=== PATIENT | female | born 1970 | race Caucasian/White ===

== ENCOUNTER 2020-06-05 08:23 | Day surgery (SDC) | payer OTHER ==
[2020-06-02 12:23] VITALS: BMI 25.2
[2020-06-05] MEDS ORDERED: KETAMINE HCL 500 MG/10 ML VIAL ONE (10:25)
[2020-06-05] MEDS ORDERED: ONDANSETRON 4 MG/2 ML VIAL ONE (10:30)
[2020-06-05] MEDS ORDERED: PROPOFOL 20 ML ONE (10:30)
[2020-06-05] MEDS ORDERED: LACTATED RINGERS SOLUTION 1,000 ML IV SCH (11:45)
[2020-06-05] MEDS ORDERED: ACETAMINOPHEN 325 MG TABLET (FP) PO PRN (11:45)
[2020-06-05] MEDS ORDERED: KETOROLAC TROMETHAMINE 30 MG/1 ML VIAL IVPUSH ONE (11:46)
[2020-06-05 11:57] VITALS: TEMP 98.2
[2020-06-05 12:42] VITALS: BP 116/72; PULSE 62
== END 2020-06-05 12:45 | disposition home or self-care (01) ==
LOC: FECT 08:23
PROVIDERS: ATTEND Psychiatry & Neurology Psychiatry
PROC: GZB4ZZZ Other Electroconvulsive Therapy (ICD-10-PCS; principal; 2020-06-05 10:30)
DX: F32.9 Major depressive disorder, single episode, unspecified (principal)
CPT/HCPCS: 90870; 94760; C9803; U0003

== ENCOUNTER 2020-06-08 06:21 | Day surgery (SDC) | payer OTHER ==
[2020-06-02 12:55] VITALS: BMI 25.2
[2020-06-08] MEDS ORDERED: KETAMINE HCL 500 MG/10 ML VIAL ONE (08:21)
[2020-06-08 09:35] VITALS: TEMP 98.7
[2020-06-08 10:20] VITALS: BP 122/71; PULSE 70
== END 2020-06-08 10:10 | disposition home or self-care (01) ==
LOC: FECT 06:21
PROVIDERS: ATTEND Psychiatry & Neurology Psychiatry
PROC: GZB4ZZZ Other Electroconvulsive Therapy (ICD-10-PCS; principal; 2020-06-08 08:30)
DX: F32.9 Major depressive disorder, single episode, unspecified (principal)
CPT/HCPCS: 90870; 94760; C9803; U0003

== ENCOUNTER 2021-09-04 08:07 | Day surgery (SDC) | payer OTHER ==
[2021-09-04 09:00] VITALS: BMI 27.8
[2021-09-04] MEDS ORDERED: KETAMINE HCL 200 MG/20 ML VIAL ONE (09:46)
[2021-09-04 10:36] VITALS: TEMP 98
[2021-09-04 11:20] VITALS: BP 126/72; PULSE 62
== END 2021-09-04 11:20 | disposition home or self-care (01) ==
LOC: FECT 08:07
PROVIDERS: ATTEND Psychiatry & Neurology Psychiatry
PROC: GZB4ZZZ Other Electroconvulsive Therapy (ICD-10-PCS; principal; 2021-09-04 09:50)
DX: F33.2 Major depressive disorder, recurrent severe without psychotic features (principal)
CPT/HCPCS: 90870; 93005; 94760; C9803-CS; U0003; U0005

== ENCOUNTER 2021-09-06 07:22 | Day surgery (SDC) | payer OTHER ==
[2021-09-05 12:38] VITALS: BMI 27.8
[2021-09-06] MEDS ORDERED: KETAMINE HCL 500 MG/10 ML VIAL ONE (08:40)
[2021-09-06 09:20] VITALS: TEMP 97.1
[2021-09-06 10:17] VITALS: BP 131/76; PULSE 68
[2021-09-13] MEDS ORDERED: KETAMINE HCL 500 MG/10 ML VIAL ONE (07:50)
[2021-09-14] MEDS ORDERED: KETAMINE HCL 500 MG/10 ML VIAL ONE (07:13)
== END 2021-09-06 10:05 | disposition home or self-care (01) ==
LOC: FECT 07:22
PROVIDERS: ATTEND Psychiatry & Neurology Psychiatry
PROC: GZB4ZZZ Other Electroconvulsive Therapy (ICD-10-PCS; principal; 2021-09-06 08:55)
DX: F31.9 Bipolar disorder, unspecified (principal)
CPT/HCPCS: 90870; 94760

== ENCOUNTER 2021-09-07 06:00 | Day surgery (SDC) | payer OTHER ==
[2021-09-05 15:06] VITALS: BMI 27.8
[2021-09-07] MEDS ORDERED: KETAMINE HCL 500 MG/10 ML VIAL ONE (07:21)
[2021-09-07] MEDS ORDERED: ONDANSETRON 4 MG/2 ML VIAL ONE (07:26)
[2021-09-07] MEDS ORDERED: PROPOFOL 20 ML ONE (07:26)
[2021-09-07] MEDS ORDERED: KETOROLAC TROMETHAMINE 30 MG/1 ML VIAL ONE (07:26)
[2021-09-07] MEDS ORDERED: LIDOCAINE HCL/PF 2% SDV 5ML VIAL ONE (07:26)
[2021-09-07] MEDS ORDERED: SUCCINYLCHOLINE CHLORIDE 200 MG/10 ML SYRINGE ONE (07:26)
[2021-09-07 08:40] VITALS: TEMP 97.7
[2021-09-07 09:04] VITALS: BP 125/75; PULSE 69
[2021-09-07] MEDS ORDERED: ACETAMINOPHEN 325 MG TABLET (FP) PO PRN (09:57)
[2021-09-07] MEDS ORDERED: ONDANSETRON 4 MG/2 ML VIAL IVPUSH PRN (09:57)
[2021-09-07] MEDS ORDERED: LACTATED RINGERS SOLUTION 1,000 ML IV SCH (10:00)
== END 2021-09-07 09:00 | disposition home or self-care (01) ==
LOC: FECT 06:00
PROVIDERS: ATTEND Psychiatry & Neurology Psychiatry
PROC: GZB4ZZZ Other Electroconvulsive Therapy (ICD-10-PCS; principal; 2021-09-07 07:31)
DX: F31.62 Bipolar disorder, current episode mixed, moderate (principal)
CPT/HCPCS: 90870; 94760; C9803-CS; U0003; U0005

== ENCOUNTER 2021-09-11 07:06 | Day surgery (SDC) | payer OTHER ==
[2021-09-07 14:46] VITALS: BMI 27.8
[2021-09-11] MEDS ORDERED: KETAMINE HCL 500 MG/10 ML VIAL ONE (08:42)
[2021-09-11] MEDS ORDERED: LIDOCAINE HCL/PF 2% SDV 5ML VIAL ONE (08:47)
[2021-09-11 09:08] VITALS: TEMP 98.6
[2021-09-11 10:08] VITALS: BP 122/80; PULSE 62
== END 2021-09-11 10:10 | disposition home or self-care (01) ==
LOC: FECT 07:06
PROVIDERS: ATTEND Psychiatry & Neurology Psychiatry
PROC: GZB4ZZZ Other Electroconvulsive Therapy (ICD-10-PCS; principal; 2021-09-11 08:55)
DX: F31.9 Bipolar disorder, unspecified (principal)
CPT/HCPCS: 90870; 94760; C9803-CS; U0003; U0005

== ENCOUNTER 2021-09-13 06:10 | Day surgery (SDC) | payer OTHER ==
[2021-09-13 06:48] VITALS: BMI 29.4
[2021-09-13 08:49] VITALS: TEMP 97.8
[2021-09-13 09:12] VITALS: BP 127/71; PULSE 78
== END 2021-09-13 09:15 | disposition home or self-care (01) ==
LOC: FECT 06:10
PROVIDERS: ATTEND Psychiatry & Neurology Psychiatry
PROC: GZB4ZZZ Other Electroconvulsive Therapy (ICD-10-PCS; principal; 2021-09-13 08:01)
DX: F31.9 Bipolar disorder, unspecified (principal)
CPT/HCPCS: 90870; 94760

== ENCOUNTER 2021-09-14 06:02 | Day surgery (SDC) | payer OTHER ==
[2021-09-11 18:17] VITALS: BMI 27.8
[2021-09-14] MEDS ORDERED: ACETAMINOPHEN 1000 MG/100 ML BAG IVPB ONE (07:46)
[2021-09-14] MEDS ORDERED: LACTATED RINGERS SOLUTION 1,000 ML IV SCH (08:00)
[2021-09-14 08:27] VITALS: TEMP 97.8
[2021-09-14 09:05] VITALS: BP 122/74; PULSE 68
== END 2021-09-14 09:07 | disposition home or self-care (01) ==
LOC: FECT 06:02
PROVIDERS: ATTEND Psychiatry & Neurology Psychiatry
PROC: GZB4ZZZ Other Electroconvulsive Therapy (ICD-10-PCS; principal; 2021-09-14 07:39)
DX: F31.9 Bipolar disorder, unspecified (principal)
CPT/HCPCS: 90870; 94760; C9803-CS; U0003; U0005

== ENCOUNTER 2021-09-25 06:05 | Day surgery (SDC) | payer OTHER ==
[2021-09-18 12:05] VITALS: BMI 27.8
[2021-09-25] MEDS ORDERED: EPI-SHUGARCAINE (EPINEPHRINE 0.025% & LIDOCAINE-PF 0.75%) 4ML ONE (07:18)
[2021-09-25] MEDS ORDERED: TETRACAINE 0.5% OPHTH SOLN 2 ML BOTTLE ONE (07:18)
[2021-09-25] MEDS ORDERED: BACITRACIN/POLYMYXIN OPH OINT 3.5 GM TUBE ONE (07:18)
[2021-09-25] MEDS ORDERED: BETAXOLOL HCL 0.25% OPHTHALMIC 10 ML DROPSBTL ONE (07:18)
[2021-09-25] MEDS ORDERED: EPINEPHrine/PF 1 MG/1 ML (1:1,000) AMPULE ONE ×2 (07:18→07:19)
[2021-09-25] MEDS ORDERED: NEO/POLYMYX B SULF/DEXAMETH OPHTHALMIC 5ML BOTTLE ONE (07:19)
[2021-09-25] MEDS ORDERED: POVIDONE-IODINE 5% OPHTHALMIC PREP 30 ML SOLUTION ONE (07:19)
[2021-09-25] MEDS ORDERED: KETAMINE HCL 500 MG/10 ML VIAL ONE (08:02)
[2021-09-25] MEDS ORDERED: LIDOCAINE HCL/PF 2% SDV 5ML VIAL ONE (08:08)
[2021-09-25 08:28] VITALS: TEMP 98
[2021-09-25 09:19] VITALS: BP 122/75; PULSE 74
[2021-09-25] MEDS ORDERED: ACETAMINOPHEN 325 MG TABLET (FP) PO PRN (09:39)
[2021-09-25] MEDS ORDERED: PROMETHAZINE HCL 25 MG/1 ML VIAL IVPUSH PRN (09:39)
[2021-09-25] MEDS ORDERED: LACTATED RINGERS SOLUTION 1,000 ML IV SCH (09:45)
== END 2021-09-25 09:20 | disposition home or self-care (01) ==
LOC: FECT 06:05
PROVIDERS: ATTEND Psychiatry & Neurology Psychiatry
PROC: GZB4ZZZ Other Electroconvulsive Therapy (ICD-10-PCS; principal; 2021-09-25 08:09)
DX: F31.9 Bipolar disorder, unspecified (principal)
CPT/HCPCS: 90870; 94760

== ENCOUNTER 2021-09-27 06:15 | Day surgery (SDC) | payer OTHER ==
[2021-09-19 16:16] VITALS: BMI 27.8
[2021-09-27] MEDS ORDERED: KETAMINE HCL 500 MG/10 ML VIAL ONE (07:58)
[2021-09-27 08:23] VITALS: TEMP 97.3
[2021-09-27 09:26] VITALS: BP 129/69; PULSE 77
== END 2021-09-27 09:10 | disposition home or self-care (01) ==
LOC: FECT 06:15
PROVIDERS: ATTEND Psychiatry & Neurology Psychiatry
PROC: GZB4ZZZ Other Electroconvulsive Therapy (ICD-10-PCS; principal; 2021-09-27 08:04)
DX: F31.9 Bipolar disorder, unspecified (principal)
CPT/HCPCS: 90870; 94760

== ENCOUNTER 2021-09-28 05:53 | Day surgery (SDC) | payer OTHER ==
[2021-09-19 16:20] VITALS: BMI 27.8
[2021-09-28] MEDS ORDERED: KETAMINE HCL 500 MG/10 ML VIAL ONE (07:33)
[2021-09-28] MEDS ORDERED: PROPOFOL 20 ML ONE (07:34)
[2021-09-28] MEDS ORDERED: KETOROLAC TROMETHAMINE 30 MG/1 ML VIAL ONE (07:34)
[2021-09-28] MEDS ORDERED: LIDOCAINE HCL 2% 100 MG/5 ML DISP.SYRIN ONE (07:34)
[2021-09-28] MEDS ORDERED: ONDANSETRON 4 MG/2 ML VIAL ONE (07:34)
[2021-09-28 08:31] VITALS: BP 127/75; PULSE 76; TEMP 97
== END 2021-09-28 08:43 | disposition home or self-care (01) ==
LOC: FECT 05:53
PROVIDERS: ATTEND Psychiatry & Neurology Psychiatry
PROC: GZB4ZZZ Other Electroconvulsive Therapy (ICD-10-PCS; principal; 2021-09-28 07:43)
DX: F31.9 Bipolar disorder, unspecified (principal)
CPT/HCPCS: 90870; 94760

== ENCOUNTER 2021-10-02 05:52 | Day surgery (SDC) | payer OTHER ==
[2021-09-19 16:23] VITALS: BMI 27.8
[2021-10-02] MEDS ORDERED: KETAMINE HCL 500 MG/10 ML VIAL ONE (07:11)
[2021-10-02 08:22] VITALS: TEMP 97.8
[2021-10-02 08:35] VITALS: BP 125/77; PULSE 66
== END 2021-10-02 08:45 | disposition home or self-care (01) ==
LOC: FECT 05:52
PROVIDERS: ATTEND Psychiatry & Neurology Psychiatry
PROC: GZB4ZZZ Other Electroconvulsive Therapy (ICD-10-PCS; principal; 2021-10-02 07:31)
DX: F31.9 Bipolar disorder, unspecified (principal)
CPT/HCPCS: 90870; 94760

== ENCOUNTER 2021-10-04 06:34 | Day surgery (SDC) | payer OTHER ==
[2021-09-25 12:30] VITALS: BMI 27.8
[2021-10-04] MEDS ORDERED: PROPOFOL 20 ML ONE (08:18)
[2021-10-04] MEDS ORDERED: KETOROLAC TROMETHAMINE 30 MG/1 ML VIAL ONE (08:18)
[2021-10-04] MEDS ORDERED: ONDANSETRON 4 MG/2 ML VIAL ONE (08:18)
[2021-10-04] MEDS ORDERED: KETAMINE HCL 500 MG/10 ML VIAL ONE (08:18)
[2021-10-04] MEDS ORDERED: SUCCINYLCHOLINE CHLORIDE 200 MG/10 ML SYRINGE ONE (08:18)
[2021-10-04] MEDS ORDERED: ACETAMINOPHEN INJECTION 100 ML IVPB ONE (08:46)
[2021-10-04] MEDS ORDERED: ACETAMINOPHEN 1000 MG/100 ML BAG IVPB ONE (09:18)
[2021-10-04 09:25] VITALS: TEMP 97.4
[2021-10-04 09:41] VITALS: BP 100/60; PULSE 66
== END 2021-10-04 09:45 | disposition home or self-care (01) ==
LOC: FECT 06:34
PROVIDERS: ATTEND Psychiatry & Neurology Psychiatry
PROC: GZB4ZZZ Other Electroconvulsive Therapy (ICD-10-PCS; principal; 2021-10-04 08:27)
DX: F31.9 Bipolar disorder, unspecified (principal)
CPT/HCPCS: 90870; 94760

== ENCOUNTER 2021-10-05 05:58 | Day surgery (SDC) | payer OTHER ==
[2021-09-13 15:55] VITALS: BMI 29.4
[2021-10-05] MEDS ORDERED: KETAMINE HCL 500 MG/10 ML VIAL ONE (07:26)
[2021-10-05 09:13] VITALS: BP 115/74; PULSE 71; TEMP 97.8
== END 2021-10-05 09:10 | disposition home or self-care (01) ==
LOC: FECT 05:58
PROVIDERS: ATTEND Psychiatry & Neurology Psychiatry
PROC: GZB4ZZZ Other Electroconvulsive Therapy (ICD-10-PCS; principal; 2021-10-05 07:45)
DX: F31.62 Bipolar disorder, current episode mixed, moderate (principal)
CPT/HCPCS: 90870; 94760

== ENCOUNTER 2021-10-09 05:52 | Day surgery (SDC) | payer OTHER ==
[2021-10-05 07:43] VITALS: BMI 29.4
[2021-10-09] MEDS ORDERED: KETAMINE HCL 500 MG/10 ML VIAL ONE (07:29)
[2021-10-09 08:26] VITALS: TEMP 98
[2021-10-09 08:57] VITALS: BP 121/67; PULSE 62
== END 2021-10-09 09:00 | disposition home or self-care (01) ==
LOC: FECT 05:52
PROVIDERS: ATTEND Psychiatry & Neurology Psychiatry
PROC: GZB4ZZZ Other Electroconvulsive Therapy (ICD-10-PCS; principal; 2021-10-09 07:43)
DX: F31.9 Bipolar disorder, unspecified (principal)
CPT/HCPCS: 90870; 94760

== ENCOUNTER 2021-10-11 08:17 | Day surgery (SDC) | payer OTHER ==
[2021-10-05 08:11] VITALS: BMI 29.4
[2021-10-11] MEDS ORDERED: KETAMINE HCL 500 MG/10 ML VIAL ONE (10:33)
[2021-10-11] MEDS ORDERED: SUCCINYLCHOLINE CHLORIDE 200 MG/10 ML SYRINGE ONE (10:33)
[2021-10-11 11:36] VITALS: TEMP 97
[2021-10-11 11:50] VITALS: BP 113/62; PULSE 65
== END 2021-10-11 11:58 | disposition home or self-care (01) ==
LOC: FECT 08:17
PROVIDERS: ATTEND Psychiatry & Neurology Psychiatry
PROC: GZB4ZZZ Other Electroconvulsive Therapy (ICD-10-PCS; principal; 2021-10-11 10:41)
DX: F31.9 Bipolar disorder, unspecified (principal)
CPT/HCPCS: 90870; 94760

== ENCOUNTER 2021-10-12 05:52 | Day surgery (SDC) | payer OTHER ==
[2021-10-05 08:13] VITALS: BMI 29.4
[2021-10-12] MEDS ORDERED: KETAMINE HCL 500 MG/10 ML VIAL ONE (07:17)
[2021-10-12 08:25] VITALS: TEMP 97.3
[2021-10-12 08:41] VITALS: BP 121/71; PULSE 69
== END 2021-10-12 08:45 | disposition home or self-care (01) ==
LOC: FECT 05:52
PROVIDERS: ATTEND Psychiatry & Neurology Psychiatry
PROC: GZB4ZZZ Other Electroconvulsive Therapy (ICD-10-PCS; principal; 2021-10-12 07:31)
DX: F31.9 Bipolar disorder, unspecified (principal)
CPT/HCPCS: 90870; 94760

== ENCOUNTER 2021-10-16 06:05 | Day surgery (SDC) | payer OTHER ==
[2021-10-12 14:02] VITALS: BMI 29.4
[2021-10-16] MEDS ORDERED: KETOROLAC TROMETHAMINE 30 MG/1 ML VIAL ONE (07:29)
[2021-10-16] MEDS ORDERED: KETAMINE HCL 500 MG/10 ML VIAL ONE (07:29)
[2021-10-16] MEDS ORDERED: PROPOFOL 20 ML ONE (07:35)
[2021-10-16] MEDS ORDERED: SUCCINYLCHOLINE CHLORIDE 200 MG/10 ML SYRINGE ONE (07:35)
[2021-10-16] MEDS ORDERED: ONDANSETRON 4 MG/2 ML VIAL ONE (07:35)
[2021-10-16 08:11] VITALS: TEMP 97.8
[2021-10-16 09:11] VITALS: BP 103/69; PULSE 65
[2021-10-16] MEDS ORDERED: ONDANSETRON 4 MG/2 ML VIAL IVPUSH PRN (10:30)
[2021-10-16] MEDS ORDERED: oxyCODONE HCL 5 MG TABLET PO PRN (10:30)
== END 2021-10-16 09:15 | disposition home or self-care (01) ==
LOC: FECT 06:05
PROVIDERS: ATTEND Psychiatry & Neurology Psychiatry
PROC: GZB4ZZZ Other Electroconvulsive Therapy (ICD-10-PCS; principal; 2021-10-16 07:43)
DX: F31.9 Bipolar disorder, unspecified (principal)
CPT/HCPCS: 90870; 94760

== ENCOUNTER 2021-10-18 06:35 | Day surgery (SDC) | payer OTHER ==
[2021-10-12 14:21] VITALS: BMI 29.4
[2021-10-18] MEDS ORDERED: KETAMINE HCL 500 MG/10 ML VIAL ONE (08:12)
[2021-10-18] MEDS ORDERED: ONDANSETRON 4 MG/2 ML VIAL ONE (08:16)
[2021-10-18] MEDS ORDERED: KETOROLAC TROMETHAMINE 30 MG/1 ML VIAL ONE (08:16)
[2021-10-18] MEDS ORDERED: SUCCINYLCHOLINE CHLORIDE 200 MG/10 ML SYRINGE ONE (08:17)
[2021-10-18] MEDS ORDERED: PROPOFOL 20 ML ONE (08:17)
[2021-10-18] MEDS ORDERED: ONDANSETRON 4 MG/2 ML VIAL IVPUSH PRN (08:33)
[2021-10-18] MEDS ORDERED: MIDAZOLAM HCL 2 MG/2 ML SINGLE DOSE VIAL IVPUSH PRN (08:33)
[2021-10-18 08:41] VITALS: TEMP 97.7
[2021-10-18] MEDS ORDERED: LACTATED RINGERS SOLUTION 1,000 ML IV SCH (08:45)
[2021-10-18 09:51] VITALS: BP 106/64; PULSE 60
== END 2021-10-18 09:40 | disposition home or self-care (01) ==
LOC: FECT 06:35
PROVIDERS: ATTEND Psychiatry & Neurology Psychiatry
PROC: GZB4ZZZ Other Electroconvulsive Therapy (ICD-10-PCS; principal; 2021-10-18 08:19)
DX: F31.9 Bipolar disorder, unspecified (principal)
CPT/HCPCS: 90870; 94760

== ENCOUNTER 2021-10-23 06:01 | Day surgery (SDC) | payer OTHER ==
[2021-10-16 15:24] VITALS: BMI 29.4
[2021-10-23] MEDS ORDERED: KETOROLAC TROMETHAMINE 30 MG/1 ML VIAL ONE (06:49)
[2021-10-23] MEDS ORDERED: KETAMINE HCL 500 MG/10 ML VIAL ONE (06:49)
[2021-10-23] MEDS ORDERED: ONDANSETRON 4 MG/2 ML VIAL ONE (07:02)
[2021-10-23] MEDS ORDERED: PROPOFOL 20 ML ONE (07:02)
[2021-10-23] MEDS ORDERED: LIDOCAINE HCL/PF 2% SDV 5ML VIAL ONE (07:02)
[2021-10-23] MEDS ORDERED: SUCCINYLCHOLINE CHLORIDE 200 MG/10 ML SYRINGE ONE (07:03)
[2021-10-23 08:17] VITALS: BP 121/61; PULSE 61; TEMP 98
[2021-10-23] MEDS ORDERED: ONDANSETRON 4 MG/2 ML VIAL IVPUSH PRN (10:00)
== END 2021-10-23 08:30 | disposition home or self-care (01) ==
LOC: FECT 06:01
PROVIDERS: ATTEND Psychiatry & Neurology Psychiatry
PROC: GZB4ZZZ Other Electroconvulsive Therapy (ICD-10-PCS; principal; 2021-10-23 07:05)
DX: F31.9 Bipolar disorder, unspecified (principal)
CPT/HCPCS: 90870; 94760

== ENCOUNTER 2021-10-26 06:08 | Day surgery (SDC) | payer OTHER ==
[2021-10-23 13:39] VITALS: BMI 29.4
[2021-10-26] MEDS ORDERED: KETAMINE HCL 500 MG/10 ML VIAL ONE (07:14)
[2021-10-26 10:16] VITALS: BP 99/54; PULSE 61; TEMP 98
== END 2021-10-26 08:40 | disposition home or self-care (01) ==
LOC: FECT 06:08
PROVIDERS: ATTEND Psychiatry & Neurology Psychiatry
PROC: GZB4ZZZ Other Electroconvulsive Therapy (ICD-10-PCS; principal; 2021-10-26 07:28)
DX: F31.62 Bipolar disorder, current episode mixed, moderate (principal)
CPT/HCPCS: 90870; 94760

== ENCOUNTER 2021-10-30 06:02 | Day surgery (SDC) | payer OTHER ==
[2021-10-30 06:50] VITALS: BMI 29.4
[2021-10-30] MEDS ORDERED: KETOROLAC TROMETHAMINE 30 MG/1 ML VIAL ONE (07:31)
[2021-10-30] MEDS ORDERED: KETAMINE HCL 500 MG/10 ML VIAL ONE (07:31)
[2021-10-30] MEDS ORDERED: ONDANSETRON 4 MG/2 ML VIAL ONE (07:33)
[2021-10-30] MEDS ORDERED: SUCCINYLCHOLINE CHLORIDE 200 MG/10 ML SYRINGE ONE (07:33)
[2021-10-30] MEDS ORDERED: PROPOFOL 20 ML ONE (07:33)
[2021-10-30 08:12] VITALS: RESP 16
[2021-10-30 09:01] VITALS: TEMP 97.3
[2021-10-30 11:17] VITALS: BP 92/58; PULSE 63
== END 2021-10-30 09:25 | disposition home or self-care (01) ==
LOC: FECT 06:02
PROVIDERS: ATTEND Psychiatry & Neurology Psychiatry
PROC: GZB4ZZZ Other Electroconvulsive Therapy (ICD-10-PCS; principal; 2021-10-30 07:47)
DX: F31.9 Bipolar disorder, unspecified (principal)
CPT/HCPCS: 90870; 94760

== ENCOUNTER 2021-11-02 06:01 | Day surgery (SDC) | payer OTHER ==
[2021-10-31 15:06] VITALS: BMI 29.4
[2021-11-02] MEDS ORDERED: KETAMINE HCL 500 MG/10 ML VIAL ONE (07:26)
[2021-11-02] MEDS ORDERED: SUCCINYLCHOLINE CHLORIDE 200 MG/10 ML SYRINGE ONE (07:32)
[2021-11-02] MEDS ORDERED: ACETAMINOPHEN 325 MG TABLET (FP) ONE (08:30)
[2021-11-02 08:33] VITALS: RESP 18; TEMP 97.4
[2021-11-02] MEDS ORDERED: ACETAMINOPHEN 325 MG TABLET (FP) PO ONE ×2 (08:35→08:52)
[2021-11-02 09:11] VITALS: BP 111/61; PULSE 63
== END 2021-11-02 09:20 | disposition home or self-care (01) ==
LOC: FECT 06:01
PROVIDERS: ATTEND Psychiatry & Neurology Psychiatry
PROC: GZB4ZZZ Other Electroconvulsive Therapy (ICD-10-PCS; principal; 2021-11-02 07:37)
DX: F31.9 Bipolar disorder, unspecified (principal)
CPT/HCPCS: 90870; 94760

== ENCOUNTER 2021-11-06 06:04 | Day surgery (SDC) | payer OTHER ==
[2021-11-01 12:01] VITALS: BMI 29.4
[2021-11-06] MEDS ORDERED: KETOROLAC TROMETHAMINE 30 MG/1 ML VIAL ONE (07:22)
[2021-11-06] MEDS ORDERED: KETAMINE HCL 500 MG/10 ML VIAL ONE (07:22)
[2021-11-06] MEDS ORDERED: PROPOFOL 20 ML ONE (07:28)
[2021-11-06] MEDS ORDERED: LIDOCAINE HCL/PF 2% SDV 5ML VIAL ONE (07:28)
[2021-11-06] MEDS ORDERED: ONDANSETRON 4 MG/2 ML VIAL ONE (07:28)
[2021-11-06] MEDS ORDERED: SUCCINYLCHOLINE CHLORIDE 200 MG/10 ML SYRINGE ONE (07:28)
[2021-11-06 09:11] VITALS: RESP 18; TEMP 97.9
[2021-11-06 09:12] VITALS: BP 101/60; PULSE 64
== END 2021-11-06 09:00 | disposition home or self-care (01) ==
LOC: FECT 06:04
PROVIDERS: ATTEND Psychiatry & Neurology Psychiatry
PROC: GZB4ZZZ Other Electroconvulsive Therapy (ICD-10-PCS; principal; 2021-11-06 07:40)
DX: F31.62 Bipolar disorder, current episode mixed, moderate (principal)
CPT/HCPCS: 90870; 94760

== ENCOUNTER 2021-11-09 06:06 | Day surgery (SDC) | payer OTHER ==
[2021-11-05 08:54] VITALS: BMI 29.4
[2021-11-09] MEDS ORDERED: KETAMINE HCL 500 MG/10 ML VIAL ONE (07:27)
[2021-11-09] MEDS ORDERED: SUCCINYLCHOLINE CHLORIDE 200 MG/10 ML SYRINGE ONE (07:40)
[2021-11-09 08:53] VITALS: BP 114/65; PULSE 60; RESP 17; TEMP 97.8
== END 2021-11-09 09:15 | disposition home or self-care (01) ==
LOC: FECT 06:06
PROVIDERS: ATTEND Psychiatry & Neurology Psychiatry
PROC: GZB4ZZZ Other Electroconvulsive Therapy (ICD-10-PCS; principal; 2021-11-09 07:43)
DX: F31.9 Bipolar disorder, unspecified (principal)
CPT/HCPCS: 90870; 94760

== ENCOUNTER 2021-11-13 06:14 | Day surgery (SDC) | payer OTHER ==
[2021-11-05 09:07] VITALS: BMI 29.4
[2021-11-13] MEDS ORDERED: KETAMINE HCL 500 MG/10 ML VIAL ONE (07:32)
[2021-11-13 08:02] VITALS: TEMP 98.2
[2021-11-13 09:03] VITALS: RESP 18
[2021-11-13 09:06] VITALS: BP 113/66; PULSE 61
== END 2021-11-13 09:10 | disposition home or self-care (01) ==
LOC: FECT 06:14
PROVIDERS: ATTEND Psychiatry & Neurology Psychiatry
PROC: GZB4ZZZ Other Electroconvulsive Therapy (ICD-10-PCS; principal; 2021-11-13 07:44)
DX: F31.9 Bipolar disorder, unspecified (principal)
CPT/HCPCS: 90870; 94760

== ENCOUNTER 2021-11-16 06:06 | Day surgery (SDC) | payer OTHER ==
[2021-11-12 14:43] VITALS: BMI 29.4
[2021-11-16] MEDS ORDERED: KETAMINE HCL 500 MG/10 ML VIAL ONE (07:23)
[2021-11-16 08:15] VITALS: TEMP 98.2
[2021-11-16 09:06] VITALS: RESP 18
[2021-11-16 09:08] VITALS: BP 110/75; PULSE 61
== END 2021-11-16 09:10 | disposition home or self-care (01) ==
LOC: FECT 06:06
PROVIDERS: ATTEND Psychiatry & Neurology Psychiatry
PROC: GZB4ZZZ Other Electroconvulsive Therapy (ICD-10-PCS; principal; 2021-11-16 07:33)
DX: F31.9 Bipolar disorder, unspecified (principal)
CPT/HCPCS: 90870; 94760

== ENCOUNTER 2021-11-30 06:12 | Day surgery (SDC) | payer OTHER ==
[2021-11-13 12:48] VITALS: BMI 29.4
[2021-11-30] MEDS ORDERED: KETAMINE HCL 500 MG/10 ML VIAL ONE (07:59)
[2021-11-30 08:55] VITALS: PULSE 53; RESP 18; TEMP 97.9
[2021-11-30 09:22] VITALS: BP 105/65
[2021-11-30] MEDS ORDERED: ACETAMINOPHEN 325 MG TABLET (FP) PO PRN (09:31)
[2021-11-30] MEDS ORDERED: PROMETHAZINE HCL 25 MG/1 ML VIAL IVPUSH PRN (09:31)
[2021-11-30] MEDS ORDERED: LACTATED RINGERS SOLUTION 1,000 ML IV SCH (09:45)
== END 2021-11-30 09:26 | disposition home or self-care (01) ==
LOC: FECT 06:12
PROVIDERS: ATTEND Psychiatry & Neurology Psychiatry
PROC: GZB4ZZZ Other Electroconvulsive Therapy (ICD-10-PCS; principal; 2021-11-30 08:09)
DX: F31.9 Bipolar disorder, unspecified (principal)
CPT/HCPCS: 90870; 94760

== ENCOUNTER 2021-12-07 06:03 | Day surgery (SDC) | payer OTHER ==
[2021-12-07 07:14] VITALS: BMI 29.5
[2021-12-07] MEDS ORDERED: KETAMINE HCL 500 MG/10 ML VIAL ONE (08:03)
[2021-12-07] MEDS ORDERED: KETOROLAC TROMETHAMINE 30 MG/1 ML VIAL ONE (08:03)
[2021-12-07] MEDS ORDERED: ONDANSETRON 4 MG/2 ML VIAL ONE (08:07)
[2021-12-07] MEDS ORDERED: SUCCINYLCHOLINE CHLORIDE 200 MG/10 ML SYRINGE ONE (08:07)
[2021-12-07] MEDS ORDERED: PROPOFOL 20 ML ONE (08:10)
[2021-12-07 09:53] VITALS: RESP 18; TEMP 97.9
[2021-12-07] MEDS ORDERED: ONDANSETRON 4 MG/2 ML VIAL IVPUSH PRN (09:53)
[2021-12-07 10:03] VITALS: BP 107/66; PULSE 67
== END 2021-12-07 09:50 | disposition home or self-care (01) ==
LOC: FECT 06:03
PROVIDERS: ATTEND Psychiatry & Neurology Psychiatry
PROC: GZB4ZZZ Other Electroconvulsive Therapy (ICD-10-PCS; principal; 2021-12-07 08:14)
DX: F31.9 Bipolar disorder, unspecified (principal)
CPT/HCPCS: 90870; 94760

== ENCOUNTER 2021-12-14 06:06 | Day surgery (SDC) | payer OTHER ==
[2021-12-11 17:23] VITALS: BMI 29.5
[2021-12-14] MEDS ORDERED: LACTATED RINGERS SOLUTION 1,000 ML IV SCH (08:00)
[2021-12-14] MEDS ORDERED: ACETAMINOPHEN 325 MG TABLET (FP) PO PRN (08:00)
[2021-12-14] MEDS ORDERED: ONDANSETRON 4 MG/2 ML VIAL IVPUSH PRN (08:00)
[2021-12-14] MEDS ORDERED: KETAMINE HCL 500 MG/10 ML VIAL ONE (08:06)
[2021-12-14] MEDS ORDERED: KETOROLAC TROMETHAMINE 30 MG/1 ML VIAL ONE (08:10)
[2021-12-14] MEDS ORDERED: PROPOFOL 20 ML ONE (08:19)
[2021-12-14 09:10] VITALS: RESP 18; TEMP 97.6
[2021-12-14 09:40] VITALS: BP 131/71; PULSE 77
== END 2021-12-14 09:30 | disposition home or self-care (01) ==
LOC: FECT 06:06
PROVIDERS: ATTEND Psychiatry & Neurology Psychiatry
PROC: GZB4ZZZ Other Electroconvulsive Therapy (ICD-10-PCS; principal; 2021-12-14 08:17)
DX: F31.62 Bipolar disorder, current episode mixed, moderate (principal)
CPT/HCPCS: 90870; 94760

== ENCOUNTER 2021-12-21 06:10 | Day surgery (SDC) | payer OTHER ==
[2021-12-18 18:36] VITALS: BMI 29.5
[2021-12-21] MEDS ORDERED: KETAMINE HCL 500 MG/10 ML VIAL ONE (07:21)
[2021-12-21 08:02] VITALS: TEMP 97.7
[2021-12-21 08:29] VITALS: RESP 18
[2021-12-21 08:53] VITALS: BP 110/61; PULSE 66
== END 2021-12-21 08:50 | disposition home or self-care (01) ==
LOC: FECT 06:10
PROVIDERS: ATTEND Psychiatry & Neurology Psychiatry
PROC: GZB4ZZZ Other Electroconvulsive Therapy (ICD-10-PCS; principal; 2021-12-21 07:32)
DX: F31.9 Bipolar disorder, unspecified (principal)
CPT/HCPCS: 90870; 94760

== ENCOUNTER 2022-01-04 08:40 | Day surgery (SDC) | payer OTHER ==
[2022-01-01 15:00] VITALS: BMI 29.5
[2022-01-04 11:29] VITALS: TEMP 97.9
[2022-01-04 11:30] VITALS: BP 112/69; PULSE 61; RESP 18
== END 2022-01-04 11:20 | disposition home or self-care (01) ==
LOC: FECT 08:40
PROVIDERS: ATTEND Psychiatry & Neurology Psychiatry
PROC: GZB4ZZZ Other Electroconvulsive Therapy (ICD-10-PCS; principal; 2022-01-04 10:05)
DX: F31.9 Bipolar disorder, unspecified (principal)
CPT/HCPCS: 90870; 94760

== ENCOUNTER 2022-01-18 08:36 | Day surgery (SDC) | payer OTHER ==
[2022-01-11 15:14] VITALS: BMI 29.5
[2022-01-18] MEDS ORDERED: KETAMINE HCL 500 MG/10 ML VIAL ONE (10:05)
[2022-01-18] MEDS ORDERED: SUCCINYLCHOLINE CHLORIDE 200 MG/10 ML SYRINGE ONE (10:13)
[2022-01-18 10:37] VITALS: TEMP 97
[2022-01-18 12:46] VITALS: BP 120/70; PULSE 68; RESP 18
== END 2022-01-18 11:50 | disposition home or self-care (01) ==
LOC: FECT 08:36
PROVIDERS: ATTEND Psychiatry & Neurology Psychiatry
PROC: GZB4ZZZ Other Electroconvulsive Therapy (ICD-10-PCS; principal; 2022-01-18 10:17)
DX: F31.62 Bipolar disorder, current episode mixed, moderate (principal)
CPT/HCPCS: 90870; 94760

== ENCOUNTER 2022-01-31 06:32 | Day surgery (SDC) | payer OTHER ==
[2022-01-30 13:26] VITALS: BMI 29.5
[2022-01-31] MEDS ORDERED: KETAMINE HCL 500 MG/10 ML VIAL ONE (08:45)
[2022-01-31] MEDS ORDERED: MIDAZOLAM HCL 2 MG/2 ML SINGLE DOSE VIAL ONE ×2 (09:48→10:12)
[2022-01-31 11:34] VITALS: TEMP 97.8
[2022-01-31 11:50] VITALS: BP 114/72; PULSE 81; RESP 20
== END 2022-01-31 11:52 | disposition home or self-care (01) ==
LOC: FECT 06:32
PROVIDERS: ATTEND Psychiatry & Neurology Psychiatry
PROC: GZB4ZZZ Other Electroconvulsive Therapy (ICD-10-PCS; principal; 2022-01-31 08:58)
DX: F31.9 Bipolar disorder, unspecified (principal)
CPT/HCPCS: 90870; 94760

== ENCOUNTER 2022-02-15 07:15 | Day surgery (SDC) | payer OTHER ==
[2022-02-04 10:27] VITALS: BMI 29.5
[2022-02-15] MEDS ORDERED: KETAMINE HCL 500 MG/10 ML VIAL ONE (08:46)
[2022-02-15 08:52] LABS: HEMATOCRIT 39.5 % (32.4-45.2); HEMOGLOBIN 13.4 G/dL (10.7-15.3); MCH 29.6 pg (25.7-33.7); MEAN CELL VOLUME 87.1 fl (80-96); PLATELET COUNT 265.8 10^3/uL (134-434); RBC 4.53 10^6/uL (3.60-5.2); RDW 13.8 % (11.6-15.6); WHITE BLOOD COUNT 7.2 10^3/uL (4.0-10.8)
[2022-02-15 08:58] LABS: BILIRUBIN,TOTAL 1.3 mg/dl (0.2-1); CALCIUM 9.2 mg/dl (8.5-10); CREATININE 1.1 mg/dl (0.55-1.3); TOT PROT 6.6 g/dl (6.4-8.2)
[2022-02-15 08:59] LABS: PLATELET ESTIMATE ADEQUATE
[2022-02-15 10:22] VITALS: PULSE 62; RESP 16; TEMP 98.2
[2022-02-15 10:25] VITALS: BP 105/69
== END 2022-02-15 10:20 | disposition home or self-care (01) ==
LOC: FECT 07:15
PROVIDERS: ATTEND Psychiatry & Neurology Psychiatry
PROC: GZB4ZZZ Other Electroconvulsive Therapy (ICD-10-PCS; principal; 2022-02-15 08:59)
DX: F31.62 Bipolar disorder, current episode mixed, moderate (principal)
CPT/HCPCS: 36415; 80053; 85027; 90870; 94760

== ENCOUNTER 2022-02-26 09:14 | Day surgery (SDC) | payer OTHER ==
[2022-02-19 15:36] VITALS: BMI 29.5
[2022-02-26] MEDS ORDERED: KETAMINE HCL 500 MG/10 ML VIAL ONE (09:56)
[2022-02-26 11:16] VITALS: RESP 18; TEMP 98
[2022-02-26 11:35] VITALS: BP 110/69; PULSE 69
== END 2022-02-26 11:35 | disposition home or self-care (01) ==
LOC: FECT 09:14
PROVIDERS: ATTEND Psychiatry & Neurology Psychiatry
PROC: GZB4ZZZ Other Electroconvulsive Therapy (ICD-10-PCS; principal; 2022-02-26 10:13)
DX: F31.9 Bipolar disorder, unspecified (principal)
CPT/HCPCS: 90870; 94760

== ENCOUNTER 2022-03-11 07:42 | Day surgery (SDC) | payer OTHER ==
[2022-03-05 12:53] VITALS: BMI 29.5
[2022-03-11] MEDS ORDERED: KETAMINE HCL 500 MG/10 ML VIAL ONE (08:53)
[2022-03-11 10:04] VITALS: BP 112/65; PULSE 65; RESP 14; TEMP 98
== END 2022-03-11 10:06 | disposition home or self-care (01) ==
LOC: FECT 07:42
PROVIDERS: ATTEND Psychiatry & Neurology Psychiatry
PROC: GZB4ZZZ Other Electroconvulsive Therapy (ICD-10-PCS; principal; 2022-03-11 09:05)
DX: F31.62 Bipolar disorder, current episode mixed, moderate (principal)
CPT/HCPCS: 90870; 93005; 93010; 94760

== ENCOUNTER 2022-03-19 08:36 | Day surgery (SDC) | payer OTHER ==
[2022-03-18 08:26] VITALS: BMI 29.5
[2022-03-19 09:27] VITALS: RESP 18
[2022-03-19] MEDS ORDERED: KETAMINE HCL 500 MG/10 ML VIAL ONE (10:12)
[2022-03-19] MEDS ORDERED: PROPOFOL 20 ML ONE (10:42)
[2022-03-19 11:26] VITALS: TEMP 98.1
[2022-03-19 11:50] VITALS: BP 116/72; PULSE 68
== END 2022-03-19 11:52 | disposition home or self-care (01) ==
LOC: FECT 08:36
PROVIDERS: ATTEND Psychiatry & Neurology Psychiatry
PROC: GZB4ZZZ Other Electroconvulsive Therapy (ICD-10-PCS; principal; 2022-03-19 10:25)
DX: F31.62 Bipolar disorder, current episode mixed, moderate (principal)
CPT/HCPCS: 90870; 94760

== ENCOUNTER 2022-05-17 08:39 | Day surgery (SDC) | payer OTHER ==
[2022-05-17 09:00] VITALS: BMI 29.2
[2022-05-17] MEDS ORDERED: KETAMINE HCL 500 MG/10 ML VIAL ONE (09:38)
[2022-05-17 11:57] VITALS: RESP 18; TEMP 97.8
[2022-05-17 11:58] VITALS: BP 104/64; PULSE 73
== END 2022-05-17 12:00 | disposition home or self-care (01) ==
LOC: FECT 08:39
PROVIDERS: ATTEND Psychiatry & Neurology Psychiatry
PROC: GZB4ZZZ Other Electroconvulsive Therapy (ICD-10-PCS; principal; 2022-05-17 09:51)
DX: F31.9 Bipolar disorder, unspecified (principal)
CPT/HCPCS: 90870; 94760

== ENCOUNTER 2022-05-31 09:14 | Day surgery (SDC) | payer OTHER ==
[2022-05-22 16:54] VITALS: BMI 29.2
[2022-05-31 09:54] VITALS: RESP 18
[2022-05-31] MEDS ORDERED: KETAMINE HCL 500 MG/10 ML VIAL ONE (10:16)
[2022-05-31 11:51] VITALS: TEMP 98.2
[2022-05-31 12:10] VITALS: BP 124/70; PULSE 69
== END 2022-05-31 12:12 | disposition home or self-care (01) ==
LOC: FECT 09:14
PROVIDERS: ATTEND Psychiatry & Neurology Psychiatry
PROC: GZB4ZZZ Other Electroconvulsive Therapy (ICD-10-PCS; principal; 2022-05-31 10:44)
DX: F31.62 Bipolar disorder, current episode mixed, moderate (principal)
CPT/HCPCS: 90870; 94760

== ENCOUNTER 2022-06-14 09:20 | Day surgery (SDC) | payer OTHER ==
[~2022-06-14 09:20] MED LIST: LACTATED RINGERS SOLUTION 1,000 ML IV SCH
[2022-06-14 09:53] VITALS: BMI 29.2
[2022-06-14] MEDS ORDERED: KETAMINE HCL 500 MG/10 ML VIAL ONE (10:37)
[2022-06-14] MEDS ORDERED: SUCCINYLCHOLINE CHLORIDE 200 MG/10 ML SYRINGE ONE (10:50)
[2022-06-14 11:57] VITALS: RESP 19; TEMP 97.8
[2022-06-14 12:12] VITALS: BP 112/68; PULSE 67
== END 2022-06-14 12:15 | disposition home or self-care (01) ==
LOC: FECT 09:20
PROVIDERS: ATTEND Psychiatry & Neurology Psychiatry
PROC: GZB4ZZZ Other Electroconvulsive Therapy (ICD-10-PCS; principal; 2022-06-14 10:57)
DX: F31.9 Bipolar disorder, unspecified (principal)
CPT/HCPCS: 90870; 94760

== ENCOUNTER 2022-07-04 08:57 | Day surgery (SDC) | payer OTHER ==
[2022-06-18 09:47] VITALS: BMI 29.2
[2022-07-04] MEDS ORDERED: KETAMINE HCL 500 MG/10 ML VIAL ONE (10:56)
[2022-07-04 12:01] VITALS: PULSE 74; TEMP 97.5
[2022-07-04 12:13] VITALS: BP 118/64; RESP 18
== END 2022-07-04 12:20 | disposition home or self-care (01) ==
LOC: FECT 08:57
PROVIDERS: ATTEND Psychiatry & Neurology Psychiatry
PROC: GZB4ZZZ Other Electroconvulsive Therapy (ICD-10-PCS; principal; 2022-07-04 11:19)
DX: F31.9 Bipolar disorder, unspecified (principal)
CPT/HCPCS: 90870; 94760

== ENCOUNTER 2022-07-09 09:12 | Day surgery (SDC) | payer OTHER ==
[2022-07-05 17:34] VITALS: BMI 29.2
[2022-07-09] MEDS ORDERED: KETAMINE HCL 500 MG/10 ML VIAL ONE (11:53)
[2022-07-09 12:58] VITALS: RESP 18
[2022-07-09 13:03] VITALS: BP 120/82; PULSE 78; TEMP 98.1
== END 2022-07-09 12:30 | disposition home or self-care (01) ==
LOC: FECT 09:12
PROVIDERS: ATTEND Psychiatry & Neurology Psychiatry
PROC: GZB4ZZZ Other Electroconvulsive Therapy (ICD-10-PCS; principal; 2022-07-09 11:05)
DX: F31.9 Bipolar disorder, unspecified (principal)
CPT/HCPCS: 90870; 94760

== ENCOUNTER 2022-07-16 08:51 | Day surgery (SDC) | payer OTHER ==
[2022-07-10 15:57] VITALS: BMI 29.2
[2022-07-16 09:18] VITALS: TEMP 97.9
[2022-07-16] MEDS ORDERED: KETAMINE HCL 500 MG/10 ML VIAL ONE (10:29)
[2022-07-16] MEDS ORDERED: LIDOCAINE HCL/PF 2% SDV 5ML VIAL ONE (10:37)
[2022-07-16 11:33] VITALS: RESP 18
[2022-07-16 11:59] VITALS: BP 105/62; PULSE 68
[2022-07-16] MEDS ORDERED: PROMETHAZINE HCL 25 MG/1 ML VIAL IVPB PRN (12:20)
[2022-07-16] MEDS ORDERED: ACETAMINOPHEN 325 MG TABLET (FP) PO PRN (12:20)
[2022-07-16] MEDS ORDERED: LACTATED RINGERS SOLUTION 1,000 ML IV SCH (12:30)
== END 2022-07-16 12:00 | disposition home or self-care (01) ==
LOC: FECT 08:51
PROVIDERS: ATTEND Psychiatry & Neurology Psychiatry
PROC: GZB4ZZZ Other Electroconvulsive Therapy (ICD-10-PCS; principal; 2022-07-16 10:41)
DX: F31.62 Bipolar disorder, current episode mixed, moderate (principal)
CPT/HCPCS: 90870; 94760

== ENCOUNTER 2022-07-18 07:39 | Day surgery (SDC) | payer OTHER ==
[2022-07-12 15:29] VITALS: BMI 29.2
[2022-07-18] MEDS ORDERED: KETAMINE HCL 500 MG/10 ML VIAL ONE (09:08)
[2022-07-18 10:25] VITALS: RESP 18; TEMP 98
[2022-07-18 10:40] VITALS: BP 130/70; PULSE 61
== END 2022-07-18 10:35 | disposition home or self-care (01) ==
LOC: FECT 07:39
PROVIDERS: ATTEND Psychiatry & Neurology Psychiatry
PROC: GZB4ZZZ Other Electroconvulsive Therapy (ICD-10-PCS; principal; 2022-07-18 09:17)
DX: F31.62 Bipolar disorder, current episode mixed, moderate (principal)
CPT/HCPCS: 90870; 94760

== ENCOUNTER 2022-07-30 08:23 | Day surgery (SDC) | payer OTHER ==
[2022-07-09 15:28] VITALS: BMI 29.2
[2022-07-30] MEDS ORDERED: KETAMINE HCL 500 MG/10 ML VIAL ONE (09:18)
[2022-07-30 10:45] VITALS: RESP 18
[2022-07-30 11:08] VITALS: BP 101/58; PULSE 61; TEMP 98
== END 2022-07-30 11:00 | disposition home or self-care (01) ==
LOC: FECT 08:23
PROVIDERS: ATTEND Psychiatry & Neurology Psychiatry
PROC: GZB4ZZZ Other Electroconvulsive Therapy (ICD-10-PCS; principal; 2022-07-30 09:39)
DX: F31.62 Bipolar disorder, current episode mixed, moderate (principal)
CPT/HCPCS: 90870; 94760

== ENCOUNTER 2022-08-02 09:56 | Day surgery (SDC) | payer OTHER ==
[2022-07-30 16:31] VITALS: BMI 29.2
[2022-08-02 10:18] VITALS: RESP 18; TEMP 98.1
[2022-08-02] MEDS ORDERED: KETAMINE HCL 500 MG/10 ML VIAL ONE (10:46)
[2022-08-02 12:39] VITALS: BP 128/78; PULSE 66
== END 2022-08-02 12:30 | disposition home or self-care (01) ==
LOC: FECT 09:56
PROVIDERS: ATTEND Psychiatry & Neurology Psychiatry
PROC: GZB4ZZZ Other Electroconvulsive Therapy (ICD-10-PCS; principal; 2022-08-02 11:03)
DX: F31.9 Bipolar disorder, unspecified (principal)
CPT/HCPCS: 90870; 94760

== ENCOUNTER 2022-08-20 07:46 | Day surgery (SDC) | payer OTHER ==
[2022-08-19 12:50] VITALS: BMI 29.2
[2022-08-20 09:06] LABS: ALBUMIN 3.9 g/dl (3.4-5.0); BILIRUBIN,TOTAL 0.8 mg/dl (0.2-1); CALCIUM 8.8 mg/dl (8.5-10); CREATININE 0.9 mg/dl (0.55-1.3); POTASSIUM 3.7 mmol/L (3.5-5.1); TOT PROT 6.6 g/dl (6.4-8.2)
[2022-08-20] MEDS ORDERED: KETAMINE HCL 500 MG/10 ML VIAL ONE (09:36)
[2022-08-20 09:47] LABS: BASO % 1.1 % (0-2.0); HEMATOCRIT 36.8 % (32.4-45.2); HEMOGLOBIN 12.7 GM/dL (10.7-15.3); LYMPH % 24.4 % (8-40); MCH 28.8 pg (25.7-33.7); MCHC 34.6 g/dl (32.0-36.0); MEAN CELL VOLUME 83.1 fl (80-96); MEAN PLT VOLUME 7.2 fl (7.5-11.1); MONO % 11.4 % (3.8-10.2); NEUT % 58.1 % (42.8-82.8); PLATELET COUNT 256 10^3/uL (134-434); RBC 4.42 M/mm3 (3.60-5.2); RDW 12.9 % (11.6-15.6); WHITE BLOOD COUNT 4.4 K/mm3 (4.0-10.0)
[2022-08-20 11:00] VITALS: BP 129/73; PULSE 63; RESP 19; TEMP 97.7
== END 2022-08-20 11:08 | disposition home or self-care (01) ==
LOC: FECT 07:46
PROVIDERS: ATTEND Psychiatry & Neurology Psychiatry
PROC: GZB4ZZZ Other Electroconvulsive Therapy (ICD-10-PCS; principal; 2022-08-20 09:45)
DX: F31.9 Bipolar disorder, unspecified (principal)
CPT/HCPCS: 36415; 80053; 85025; 90870; 94760

== ENCOUNTER 2022-08-30 07:20 | Day surgery (SDC) | payer OTHER ==
[2022-08-20 17:22] VITALS: BMI 29.2
[2022-08-30 10:46] VITALS: RESP 20
[2022-08-30 11:04] VITALS: BP 110/68; PULSE 68; TEMP 97
== END 2022-08-30 10:40 | disposition home or self-care (01) ==
LOC: FECT 07:20
PROVIDERS: ATTEND Psychiatry & Neurology Psychiatry
PROC: GZB4ZZZ Other Electroconvulsive Therapy (ICD-10-PCS; principal; 2022-08-30 09:25)
DX: F31.9 Bipolar disorder, unspecified (principal)
CPT/HCPCS: 90870; 94760

== ENCOUNTER 2022-09-06 08:33 | Day surgery (SDC) | payer OTHER ==
[2022-09-04 17:01] VITALS: BMI 29.2
[2022-09-06] MEDS ORDERED: KETAMINE HCL 500 MG/10 ML VIAL ONE (10:07)
[2022-09-06] MEDS ORDERED: SUCCINYLCHOLINE CHLORIDE 200 MG/10 ML SYRINGE ONE (10:13)
[2022-09-06 11:11] VITALS: RESP 17
[2022-09-06 11:26] VITALS: BP 120/68; PULSE 72; TEMP 97.2
== END 2022-09-06 11:26 | disposition home or self-care (01) ==
LOC: FECT 08:33
PROVIDERS: ATTEND Psychiatry & Neurology Psychiatry
PROC: GZB4ZZZ Other Electroconvulsive Therapy (ICD-10-PCS; principal; 2022-09-06 10:21)
DX: F31.62 Bipolar disorder, current episode mixed, moderate (principal)
CPT/HCPCS: 90870; 93005; 93010; 94760

== ENCOUNTER 2022-09-10 07:05 | Day surgery (SDC) | payer OTHER ==
[2022-09-09 10:30] VITALS: BMI 29.2
[2022-09-10] MEDS ORDERED: ONDANSETRON 4 MG/2 ML VIAL IVPUSH PRN (08:14)
[2022-09-10] MEDS ORDERED: LACTATED RINGERS SOLUTION 1,000 ML IV SCH (08:15)
[2022-09-10] MEDS ORDERED: DEXAMETHASONE SOD PHOSPHATE 4 MG/1 ML VIAL ONE ×2 (08:16→09:12)
[2022-09-10] MEDS ORDERED: SUCCINYLCHOLINE CHLORIDE 200 MG/10 ML SYRINGE ONE ×2 (08:16→09:12)
[2022-09-10] MEDS ORDERED: PROPOFOL 20 ML ONE ×2 (08:16→09:12)
[2022-09-10] MEDS ORDERED: KETAMINE HCL 200 MG/20 ML VIAL ONE (08:17)
[2022-09-10] MEDS ORDERED: LIDOCAINE HCL/PF 2% SDV 5ML VIAL ONE (08:42)
[2022-09-10] MEDS ORDERED: ONDANSETRON 4 MG/2 ML VIAL ONE (09:12)
[2022-09-10] MEDS ORDERED: KETOROLAC TROMETHAMINE 30 MG/1 ML VIAL ONE (09:12)
[2022-09-10] MEDS ORDERED: KETAMINE HCL 500 MG/10 ML VIAL ONE (09:13)
[2022-09-10 09:40] VITALS: RESP 18; TEMP 98
[2022-09-10 09:56] VITALS: BP 111/65; PULSE 61
== END 2022-09-10 10:00 | disposition home or self-care (01) ==
LOC: FECT 07:05
PROVIDERS: ATTEND Psychiatry & Neurology Psychiatry
PROC: GZB4ZZZ Other Electroconvulsive Therapy (ICD-10-PCS; principal; 2022-09-10 08:30)
DX: F31.62 Bipolar disorder, current episode mixed, moderate (principal)
CPT/HCPCS: 90870; 94760

== ENCOUNTER 2022-09-17 08:35 | Day surgery (SDC) | payer OTHER ==
[2022-09-10 15:46] VITALS: BMI 29.2
[2022-09-17] MEDS ORDERED: LACTATED RINGERS SOLUTION 1,000 ML IV SCH (10:15)
[2022-09-17] MEDS ORDERED: KETAMINE HCL 500 MG/10 ML VIAL ONE (10:17)
[2022-09-17 11:21] VITALS: RESP 18
[2022-09-17 11:41] VITALS: BP 105/60; PULSE 66; TEMP 97.5
== END 2022-09-17 11:45 | disposition home or self-care (01) ==
LOC: FECT 08:35
PROVIDERS: ATTEND Psychiatry & Neurology Psychiatry
PROC: GZB4ZZZ Other Electroconvulsive Therapy (ICD-10-PCS; principal; 2022-09-17 10:30)
DX: F31.9 Bipolar disorder, unspecified (principal)
CPT/HCPCS: 90870; 94760

== ENCOUNTER 2022-09-27 06:54 | Day surgery (SDC) | payer OTHER ==
[2022-09-18 17:19] VITALS: BMI 29.2
[2022-09-27] MEDS ORDERED: KETAMINE HCL 500 MG/10 ML VIAL ONE (08:33)
[2022-09-27 09:49] VITALS: RESP 18
[2022-09-27 09:59] VITALS: BP 110/69; PULSE 61; TEMP 97.5
== END 2022-09-27 10:00 | disposition home or self-care (01) ==
LOC: FECT 06:54
PROVIDERS: ATTEND Psychiatry & Neurology Psychiatry
PROC: GZB4ZZZ Other Electroconvulsive Therapy (ICD-10-PCS; principal; 2022-09-27 08:42)
DX: F31.62 Bipolar disorder, current episode mixed, moderate (principal)
CPT/HCPCS: 90870; 94760

== ENCOUNTER 2022-10-04 07:19 | Day surgery (SDC) | payer OTHER ==
[2022-10-01 09:14] VITALS: BMI 29.2
[2022-10-04 07:38] VITALS: RESP 20
[2022-10-04] MEDS ORDERED: KETAMINE HCL 500 MG/10 ML VIAL ONE (07:55)
[2022-10-04] MEDS ORDERED: LIDOCAINE HCL/PF 2% SDV 5ML VIAL ONE (07:59)
[2022-10-04] MEDS ORDERED: KETOROLAC TROMETHAMINE 30 MG/1 ML VIAL ONE (07:59)
[2022-10-04] MEDS ORDERED: SUCCINYLCHOLINE CHLORIDE 200 MG/10 ML SYRINGE ONE (07:59)
[2022-10-04] MEDS ORDERED: ONDANSETRON 4 MG/2 ML VIAL ONE (07:59)
[2022-10-04] MEDS ORDERED: DEXAMETHASONE SOD PHOSPHATE 4 MG/1 ML VIAL ONE (07:59)
[2022-10-04] MEDS ORDERED: PROPOFOL 40 ML ONE (07:59)
[2022-10-04] MEDS ORDERED: BACITRACIN ZINC 15 GM TUBE TOPICAL OINTMENT ONE (08:56)
[2022-10-04 10:06] VITALS: BP 103/52; TEMP 97.5
[2022-10-04 10:46] VITALS: PULSE 72
== END 2022-10-04 10:30 | disposition home or self-care (01) ==
LOC: FECT 07:19
PROVIDERS: ATTEND Psychiatry & Neurology Psychiatry
PROC: GZB4ZZZ Other Electroconvulsive Therapy (ICD-10-PCS; principal; 2022-10-04 08:54)
DX: F31.9 Bipolar disorder, unspecified (principal)
CPT/HCPCS: 90870; 94760

== ENCOUNTER 2022-10-11 07:18 | Day surgery (SDC) | payer OTHER ==
[2022-10-04 14:00] VITALS: BMI 29.2
[2022-10-11] MEDS ORDERED: KETAMINE HCL 500 MG/10 ML VIAL ONE (08:58)
[2022-10-11] MEDS ORDERED: LIDOCAINE HCL/PF 2% SDV 5ML VIAL ONE (09:11)
[2022-10-11] MEDS ORDERED: ACETAMINOPHEN 500 MG TABLET (FP) PO PRN (10:04)
[2022-10-11] MEDS ORDERED: PROMETHAZINE HCL 25 MG/1 ML VIAL IVPB PRN (10:04)
[2022-10-11 10:14] VITALS: TEMP 98.1
[2022-10-11] MEDS ORDERED: LACTATED RINGERS SOLUTION 1,000 ML IV SCH (10:15)
[2022-10-11 10:19] VITALS: BP 130/66; PULSE 66; RESP 18
== END 2022-10-11 10:25 | disposition home or self-care (01) ==
LOC: FECT 07:18
PROVIDERS: ATTEND Psychiatry & Neurology Psychiatry
PROC: GZB4ZZZ Other Electroconvulsive Therapy (ICD-10-PCS; principal; 2022-10-11 09:16)
DX: F31.9 Bipolar disorder, unspecified (principal)
CPT/HCPCS: 90870; 94760

== ENCOUNTER 2022-10-18 07:48 | Day surgery (SDC) | payer OTHER ==
[2022-10-16 18:53] VITALS: BMI 29.2
[2022-10-18] MEDS ORDERED: KETAMINE HCL 500 MG/10 ML VIAL ONE (08:56)
[2022-10-18] MEDS ORDERED: SUCCINYLCHOLINE CHLORIDE 200 MG/10 ML SYRINGE ONE (09:01)
[2022-10-18] MEDS ORDERED: PROPOFOL 20 ML ONE (09:01)
[2022-10-18 09:22] VITALS: TEMP 97.6
[2022-10-18] MEDS ORDERED: LACTATED RINGERS SOLUTION 1,000 ML IV SCH (09:45)
[2022-10-18 10:39] VITALS: BP 109/61; PULSE 76; RESP 18
== END 2022-10-18 10:20 | disposition home or self-care (01) ==
LOC: FECT 07:48
PROVIDERS: ATTEND Psychiatry & Neurology Psychiatry
PROC: GZB4ZZZ Other Electroconvulsive Therapy (ICD-10-PCS; principal; 2022-10-18 09:06)
DX: F32.A Depression, unspecified (principal)
CPT/HCPCS: 90870; 94760

== ENCOUNTER 2022-11-15 07:08 | Day surgery (SDC) | payer OTHER ==
[2022-11-01 14:27] VITALS: BMI 29.2
[2022-11-15] MEDS ORDERED: KETAMINE HCL 500 MG/10 ML VIAL ONE (08:32)
[2022-11-15] MEDS ORDERED: LACTATED RINGERS SOLUTION 1,000 ML IV SCH (09:15)
[2022-11-15 09:35] VITALS: PULSE 68
[2022-11-15 09:45] VITALS: BP 124/77; RESP 16; TEMP 97.7
== END 2022-11-15 10:31 | disposition home or self-care (01) ==
LOC: FECT 07:08
PROVIDERS: ATTEND Psychiatry & Neurology Psychiatry
PROC: GZB4ZZZ Other Electroconvulsive Therapy (ICD-10-PCS; principal; 2022-11-15 08:52)
DX: F31.62 Bipolar disorder, current episode mixed, moderate (principal)
CPT/HCPCS: 90870; 94760

== ENCOUNTER 2022-11-22 07:45 | Day surgery (SDC) | payer OTHER ==
[2022-11-15 12:02] VITALS: BMI 29.2
[2022-11-22] MEDS ORDERED: KETAMINE HCL 500 MG/10 ML VIAL ONE (09:12)
[2022-11-22 11:05] VITALS: PULSE 66; RESP 16; TEMP 96.4
[2022-11-22 11:06] VITALS: BP 107/56
== END 2022-11-22 10:50 | disposition home or self-care (01) ==
LOC: FECT 07:45
PROVIDERS: ATTEND Psychiatry & Neurology Psychiatry
PROC: GZB4ZZZ Other Electroconvulsive Therapy (ICD-10-PCS; principal; 2022-11-22 09:26)
DX: F31.9 Bipolar disorder, unspecified (principal)
CPT/HCPCS: 90870; 94760

== ENCOUNTER → 2022-11-26 | Day surgery (SDC) | payer OTHER ==
[2022-11-15 11:42] VITALS: BMI 29.2
[~2022-11-26] MED LIST changes: +KETAMINE HCL 500 MG/10 ML VIAL ONE; -LACTATED RINGERS SOLUTION 1,000 ML IV SCH
[2022-11-26 09:29] VITALS: RESP 16
[2022-11-26 11:25] VITALS: TEMP 98.2
[2022-11-26 11:33] VITALS: BP 116/72; PULSE 68
== END | disposition home or self-care (01) ==
LOC: FECT 09:05
PROVIDERS: ATTEND Psychiatry & Neurology Psychiatry
PROC: GZB4ZZZ Other Electroconvulsive Therapy (ICD-10-PCS; principal; 2022-11-26 11:03)
DX: F31.9 Bipolar disorder, unspecified (principal)
CPT/HCPCS: 90870; 94760

== ENCOUNTER 2022-11-29 08:05 | Day surgery (SDC) | payer OTHER ==
[2022-11-25 15:22] VITALS: BMI 29.2
[2022-11-29 09:59] VITALS: RESP 16
[2022-11-29 10:20] VITALS: TEMP 97.7
[2022-11-29 10:42] VITALS: BP 114/70; PULSE 68
== END 2022-11-29 10:35 | disposition home or self-care (01) ==
LOC: FECT 08:05
PROVIDERS: ATTEND Psychiatry & Neurology Psychiatry
PROC: GZB4ZZZ Other Electroconvulsive Therapy (ICD-10-PCS; principal; 2022-11-29 09:24)
DX: F31.9 Bipolar disorder, unspecified (principal)
CPT/HCPCS: 90870; 94760

== ENCOUNTER 2022-12-13 09:08 | Day surgery (SDC) | payer OTHER ==
[2022-11-27 08:31] VITALS: BMI 29.2
[2022-12-13] MEDS ORDERED: KETAMINE HCL 500 MG/10 ML VIAL ONE (11:18)
[2022-12-13 12:21] VITALS: TEMP 98.8
[2022-12-13 12:47] VITALS: BP 119/70; PULSE 75; RESP 16
== END 2022-12-13 13:15 | disposition home or self-care (01) ==
LOC: FECT 09:08
PROVIDERS: ATTEND Psychiatry & Neurology Psychiatry
PROC: GZB4ZZZ Other Electroconvulsive Therapy (ICD-10-PCS; principal; 2022-12-13 11:29)
DX: F31.9 Bipolar disorder, unspecified (principal)
CPT/HCPCS: 90870; 94760

== ENCOUNTER 2022-12-17 09:19 | Day surgery (SDC) | payer OTHER ==
[2022-11-29 15:25] VITALS: BMI 29.2
[~2022-12-17 09:19] MED LIST changes: -KETAMINE HCL 500 MG/10 ML VIAL ONE; +LACTATED RINGERS SOLUTION 1,000 ML IV SCH
[2022-12-17 10:03] VITALS: RESP 16
[2022-12-17] MEDS ORDERED: KETOROLAC TROMETHAMINE 30 MG/1 ML VIAL ONE (10:59)
[2022-12-17] MEDS ORDERED: PROPOFOL 20 ML ONE (10:59)
[2022-12-17] MEDS ORDERED: ONDANSETRON 4 MG/2 ML VIAL ONE (10:59)
[2022-12-17] MEDS ORDERED: SUCCINYLCHOLINE CHLORIDE 200 MG/10 ML SYRINGE ONE (11:00)
[2022-12-17 12:46] VITALS: PULSE 69; TEMP 97.9
[2022-12-17 13:23] VITALS: BP 124/84
== END 2022-12-17 13:10 | disposition home or self-care (01) ==
LOC: FECT 09:19
PROVIDERS: ATTEND Psychiatry & Neurology Psychiatry
PROC: GZB4ZZZ Other Electroconvulsive Therapy (ICD-10-PCS; principal; 2022-12-17 11:57)
DX: F31.9 Bipolar disorder, unspecified (principal)
CPT/HCPCS: 90870; 94760

== ENCOUNTER → 2022-12-20 | Day surgery (SDC) | payer OTHER ==
[2022-12-18 07:22] VITALS: BMI 29.2
[~2022-12-20] MED LIST changes: -LACTATED RINGERS SOLUTION 1,000 ML IV SCH; +SUCCINYLCHOLINE CHLORIDE 200 MG/10 ML SYRINGE ONE
[2022-12-20 11:22] VITALS: BP 128/78; PULSE 68; RESP 16; TEMP 97.8
== END | disposition home or self-care (01) ==
LOC: FECT 09:04
PROVIDERS: ATTEND Psychiatry & Neurology Psychiatry
PROC: GZB4ZZZ Other Electroconvulsive Therapy (ICD-10-PCS; principal; 2022-12-20 10:32)
DX: F31.9 Bipolar disorder, unspecified (principal)
CPT/HCPCS: 90870; 94760

== ENCOUNTER → 2023-01-17 | Day surgery (SDC) | payer OTHER ==
[2023-01-01 12:41] VITALS: BMI 29.2
[~2023-01-17] MED LIST changes: +KETAMINE HCL 500 MG/10 ML VIAL ONE; +METOPROLOL TARTRATE 5 MG/5 ML VIAL ONE; -SUCCINYLCHOLINE CHLORIDE 200 MG/10 ML SYRINGE ONE
[2023-01-17 11:35] VITALS: RESP 16; TEMP 97.5
[2023-01-17 11:50] VITALS: BP 116/71; PULSE 85
== END | disposition home or self-care (01) ==
LOC: FECT 09:40
PROVIDERS: ATTEND Student in an Organized Health Care Education/Training Program
PROC: GZB4ZZZ Other Electroconvulsive Therapy (ICD-10-PCS; principal; 2023-01-17 10:40)
DX: F31.9 Bipolar disorder, unspecified (principal)
CPT/HCPCS: 90870; 94760

== ENCOUNTER 2023-01-21 08:02 | Day surgery (SDC) | payer OTHER ==
[2023-01-21 08:20] VITALS: BMI 29.5
[2023-01-21 09:16] VITALS: TEMP 97.8
[2023-01-21 09:28] VITALS: RESP 18
[2023-01-21] MEDS ORDERED: ACETAMINOPHEN 500 MG TABLET (FP) PO PRN (10:10)
[2023-01-21] MEDS ORDERED: PROMETHAZINE HCL 25 MG/1 ML VIAL IVPB PRN (10:10)
[2023-01-21] MEDS ORDERED: LACTATED RINGERS SOLUTION 1,000 ML IV SCH (10:15)
[2023-01-21 10:23] VITALS: BP 112/66; PULSE 79
== END 2023-01-21 10:35 | disposition home or self-care (01) ==
LOC: FECT 08:02
PROVIDERS: ATTEND Psychiatry & Neurology Psychiatry
PROC: GZB4ZZZ Other Electroconvulsive Therapy (ICD-10-PCS; principal; 2023-01-21 08:56)
DX: F31.62 Bipolar disorder, current episode mixed, moderate (principal)
CPT/HCPCS: 90870; 94760

== ENCOUNTER 2023-01-24 08:14 | Day surgery (SDC) | payer OTHER ==
[2023-01-22 08:40] VITALS: BMI 29.4
[2023-01-24] MEDS ORDERED: KETAMINE HCL 500 MG/10 ML VIAL ONE (10:22)
[2023-01-24 11:21] VITALS: TEMP 98.9
[2023-01-24 11:35] VITALS: RESP 18
[2023-01-24 12:04] VITALS: BP 102/51
[2023-01-24 12:06] VITALS: PULSE 75
== END 2023-01-24 11:50 | disposition home or self-care (01) ==
LOC: FECT 08:14
PROVIDERS: ATTEND Psychiatry & Neurology Psychiatry
PROC: GZB4ZZZ Other Electroconvulsive Therapy (ICD-10-PCS; principal; 2023-01-24 10:37)
DX: F31.62 Bipolar disorder, current episode mixed, moderate (principal)
CPT/HCPCS: 90870; 94760

== ENCOUNTER 2023-01-28 10:26 | Day surgery (SDC) | payer OTHER ==
[2023-01-24 13:13] VITALS: BMI 29.4
[2023-01-28 10:50] VITALS: RESP 16
[2023-01-28 12:56] VITALS: TEMP 98.1
[2023-01-28 13:09] VITALS: BP 108/64; PULSE 75
== END 2023-01-28 13:25 | disposition home or self-care (01) ==
LOC: FECT 10:26
PROVIDERS: ATTEND Psychiatry & Neurology Psychiatry
PROC: GZB4ZZZ Other Electroconvulsive Therapy (ICD-10-PCS; principal; 2023-01-28 12:00)
DX: F31.62 Bipolar disorder, current episode mixed, moderate (principal)
CPT/HCPCS: 90870; 94760

== ENCOUNTER 2023-01-30 08:30 | Day surgery (SDC) | payer OTHER ==
[2023-01-24 14:29] VITALS: BMI 29.4
[2023-01-30] MEDS ORDERED: KETAMINE HCL 500 MG/10 ML VIAL ONE (09:37)
[2023-01-30 10:46] VITALS: RESP 18; TEMP 98.2
[2023-01-30 11:16] VITALS: BP 112/66; PULSE 69
== END 2023-01-30 11:20 | disposition home or self-care (01) ==
LOC: FECT 08:30
PROVIDERS: ATTEND Psychiatry & Neurology Psychiatry
PROC: GZB4ZZZ Other Electroconvulsive Therapy (ICD-10-PCS; principal; 2023-01-30 09:55)
DX: F31.9 Bipolar disorder, unspecified (principal)
CPT/HCPCS: 90870; 94760

== ENCOUNTER 2023-02-11 09:22 | Day surgery (SDC) | payer OTHER ==
[2023-01-24 14:39] VITALS: BMI 29.4
[2023-02-11] MEDS ORDERED: LACTATED RINGERS SOLUTION 1,000 ML IV SCH (11:15)
[2023-02-11 13:11] VITALS: RESP 19; TEMP 98
[2023-02-11 13:16] VITALS: BP 114/70; PULSE 64
== END 2023-02-11 13:00 | disposition home or self-care (01) ==
LOC: FECT 09:22
PROVIDERS: ATTEND Student in an Organized Health Care Education/Training Program
PROC: GZB4ZZZ Other Electroconvulsive Therapy (ICD-10-PCS; principal; 2023-02-11 11:54)
DX: F31.62 Bipolar disorder, current episode mixed, moderate (principal)
CPT/HCPCS: 90870; 94760

== ENCOUNTER 2023-02-14 08:28 | Day surgery (SDC) | payer OTHER ==
[2023-02-11 11:46] VITALS: BMI 29.4
[2023-02-14 09:26] LABS: HEMATOCRIT 39.4 % (32.4-45.2); HEMOGLOBIN 13.2 G/dL (10.7-15.3); MCH 28.7 pg (25.7-33.7); MCHC 33.5 g/dl (32.0-36.0); MEAN CELL VOLUME 85.7 fl (80-96); MEAN PLT VOLUME 6.8 fl (7.5-11.1); PLATELET COUNT 219.9 10^3/uL (134-434); RDW 13.3 % (11.6-15.6); WHITE BLOOD COUNT 4.9 10^3/uL (4.0-10.8)
[2023-02-14 09:38] LABS: ALBUMIN 4.3 g/dl (3.4-5.0); BILIRUBIN,TOTAL 0.8 mg/dl (0.2-1); CALCIUM 9.5 mg/dl (8.5-10.1); CREATININE 1.2 mg/dl (0.6-1.3); POTASSIUM 4.2 mmol/L (3.5-5.1); TOT PROT 6.2 g/dl (6.4-8.2)
[2023-02-14 11:32] VITALS: TEMP 97.5
[2023-02-14 12:06] VITALS: BP 117/70; PULSE 70; RESP 18
== END 2023-02-14 12:06 | disposition home or self-care (01) ==
LOC: FECT 08:28
PROVIDERS: ATTEND Student in an Organized Health Care Education/Training Program
PROC: GZB4ZZZ Other Electroconvulsive Therapy (ICD-10-PCS; principal; 2023-02-14 10:26)
DX: F31.9 Bipolar disorder, unspecified (principal)
CPT/HCPCS: 36415; 80053; 85027; 90870; 94760

== ENCOUNTER → 2023-02-18 | Day surgery (SDC) | payer OTHER ==
[2023-02-14 17:27] VITALS: BMI 29.4
[2023-02-18 12:38] VITALS: RESP 16
[2023-02-18 13:07] VITALS: TEMP 97.6
[2023-02-18 13:15] VITALS: BP 143/78; PULSE 84
== END | disposition home or self-care (01) ==
LOC: FECT 10:16
PROVIDERS: ATTEND Psychiatry & Neurology Psychiatry
PROC: GZB4ZZZ Other Electroconvulsive Therapy (ICD-10-PCS; principal; 2023-02-18 12:09)
DX: F31.9 Bipolar disorder, unspecified (principal)
CPT/HCPCS: 90870; 94760

== ENCOUNTER 2023-02-21 07:52 | Day surgery (SDC) | payer OTHER ==
[2023-02-19 15:39] VITALS: BMI 29.4
[2023-02-21] MEDS ORDERED: KETAMINE HCL 500 MG/10 ML VIAL ONE (09:41)
[2023-02-21 10:44] VITALS: RESP 18; TEMP 97.2
[2023-02-21 11:16] VITALS: BP 130/70; PULSE 68
== END 2023-02-21 11:13 | disposition home or self-care (01) ==
LOC: FECT 07:52
PROVIDERS: ATTEND Student in an Organized Health Care Education/Training Program
PROC: GZB4ZZZ Other Electroconvulsive Therapy (ICD-10-PCS; principal; 2023-02-21 09:52)
DX: F31.9 Bipolar disorder, unspecified (principal)
CPT/HCPCS: 90870; 94760

== ENCOUNTER 2023-02-25 06:46 | Day surgery (SDC) | payer OTHER ==
[2023-02-21 14:05] VITALS: BMI 29.4
[2023-02-25] MEDS ORDERED: ONDANSETRON 4 MG/2 ML VIAL IVPUSH PRN (08:08)
[2023-02-25] MEDS ORDERED: LACTATED RINGERS SOLUTION 1,000 ML IV SCH (08:15)
[2023-02-25] MEDS ORDERED: LIDOCAINE HCL/PF 2% SDV 5ML VIAL ONE (09:05)
[2023-02-25] MEDS ORDERED: KETAMINE HCL 500 MG/10 ML VIAL ONE (09:05)
[2023-02-25] MEDS ORDERED: SUCCINYLCHOLINE CHLORIDE 200 MG/10 ML SYRINGE ONE (09:05)
[2023-02-25] MEDS ORDERED: ONDANSETRON 4 MG/2 ML VIAL ONE (09:05)
[2023-02-25] MEDS ORDERED: KETOROLAC TROMETHAMINE 30 MG/1 ML VIAL ONE (09:05)
[2023-02-25] MEDS ORDERED: PROPOFOL 20 ML ONE (09:05)
[2023-02-25 10:37] VITALS: RESP 18; TEMP 98
[2023-02-25 10:38] VITALS: BP 104/70; PULSE 77
== END 2023-02-25 10:30 | disposition home or self-care (01) ==
LOC: FECT 06:46
PROVIDERS: ATTEND Student in an Organized Health Care Education/Training Program
PROC: GZB4ZZZ Other Electroconvulsive Therapy (ICD-10-PCS; principal; 2023-02-25 09:22)
DX: F31.5 Bipolar disorder, current episode depressed, severe, with psychotic features (principal)
CPT/HCPCS: 90870; 94760

== ENCOUNTER 2023-03-04 09:43 | Day surgery (SDC) | payer OTHER ==
[2023-02-26 07:17] VITALS: BMI 29.4
[2023-03-04 09:57] VITALS: TEMP 97.7
[2023-03-04] MEDS ORDERED: KETAMINE HCL 500 MG/10 ML VIAL ONE (11:47)
[2023-03-04 13:33] VITALS: RESP 18
[2023-03-04 13:34] VITALS: BP 105/60; PULSE 73
== END 2023-03-04 13:30 | disposition home or self-care (01) ==
LOC: FECT 09:43
PROVIDERS: ATTEND Student in an Organized Health Care Education/Training Program
PROC: GZB4ZZZ Other Electroconvulsive Therapy (ICD-10-PCS; principal; 2023-03-04 12:00)
DX: F31.9 Bipolar disorder, unspecified (principal)
CPT/HCPCS: 90870; 93005; 93010; 94760

== ENCOUNTER 2023-03-07 08:43 | Day surgery (SDC) | payer OTHER ==
[2023-03-05 13:05] VITALS: BMI 29.4
[2023-03-07] MEDS ORDERED: KETAMINE HCL 100 MG/ML - 5ML VIAL ONE (10:39)
[2023-03-07 11:57] VITALS: RESP 18; TEMP 97.2
[2023-03-07 12:19] VITALS: BP 116/60; PULSE 68
== END 2023-03-07 12:19 | disposition home or self-care (01) ==
LOC: FECT 08:43
PROVIDERS: ATTEND Psychiatry & Neurology Psychiatry
PROC: GZB4ZZZ Other Electroconvulsive Therapy (ICD-10-PCS; principal; 2023-03-07 11:00)
DX: F31.9 Bipolar disorder, unspecified (principal)
CPT/HCPCS: 90870; 94760

== ENCOUNTER 2023-03-11 10:16 | Day surgery (SDC) | payer OTHER ==
[2023-03-11 10:42] VITALS: BMI 29.4
[2023-03-11] MEDS ORDERED: KETAMINE HCL 100 MG/ML - 5ML VIAL ONE (12:12)
[2023-03-11 13:21] VITALS: RESP 18; TEMP 97.8
[2023-03-11 13:36] VITALS: BP 110/67; PULSE 79
== END 2023-03-11 13:40 | disposition home or self-care (01) ==
LOC: FECT 10:16
PROVIDERS: ATTEND Psychiatry & Neurology Psychiatry
PROC: GZB4ZZZ Other Electroconvulsive Therapy (ICD-10-PCS; principal; 2023-03-11 12:22)
DX: F31.62 Bipolar disorder, current episode mixed, moderate (principal)
CPT/HCPCS: 90870; 94760

== ENCOUNTER 2023-03-18 10:22 | Day surgery (SDC) | payer OTHER ==
[2023-03-14 08:15] VITALS: BMI 29.4
[2023-03-18] MEDS ORDERED: KETAMINE HCL 100 MG/ML - 5ML VIAL ONE (11:52)
[2023-03-18] MEDS ORDERED: KETAMINE HCL 200 MG/20 ML VIAL ONE (12:16)
[2023-03-18 13:26] VITALS: RESP 18; TEMP 98
[2023-03-18 13:31] VITALS: BP 129/60; PULSE 77
== END 2023-03-18 13:30 | disposition home or self-care (01) ==
LOC: FECT 10:22
PROVIDERS: ATTEND Student in an Organized Health Care Education/Training Program
PROC: GZB4ZZZ Other Electroconvulsive Therapy (ICD-10-PCS; principal; 2023-03-18 12:18)
DX: F31.9 Bipolar disorder, unspecified (principal)
CPT/HCPCS: 90870; 94760

== ENCOUNTER 2023-03-21 08:03 | Day surgery (SDC) | payer OTHER ==
[2023-03-18 17:01] VITALS: BMI 29.4
[2023-03-21] MEDS ORDERED: KETAMINE HCL 100 MG/ML - 5ML VIAL ONE (10:46)
[2023-03-21] MEDS ORDERED: PROPOFOL 20 ML ONE (10:48)
[2023-03-21] MEDS ORDERED: SUCCINYLCHOLINE CHLORIDE 200 MG/10 ML SYRINGE ONE (10:51)
[2023-03-21] MEDS ORDERED: DEXAMETHASONE SOD PHOSPHATE 4 MG/1 ML VIAL ONE (11:18)
[2023-03-21] MEDS ORDERED: ONDANSETRON 4 MG/2 ML VIAL ONE (11:18)
[2023-03-21] MEDS ORDERED: KETOROLAC TROMETHAMINE 30 MG/1 ML VIAL ONE (11:18)
[2023-03-21 11:57] VITALS: PULSE 67; RESP 18; TEMP 98.9
[2023-03-21 12:12] VITALS: BP 110/64
== END 2023-03-21 12:14 | disposition home or self-care (01) ==
LOC: FECT 08:03
PROVIDERS: ATTEND Student in an Organized Health Care Education/Training Program
PROC: GZB4ZZZ Other Electroconvulsive Therapy (ICD-10-PCS; principal; 2023-03-21 10:55)
DX: F31.62 Bipolar disorder, current episode mixed, moderate (principal)
CPT/HCPCS: 90870; 94760

== ENCOUNTER → 2023-03-28 | Day surgery (SDC) | payer OTHER ==
[~2023-03-28] MED LIST changes: +KETAMINE HCL 100 MG/ML - 5ML VIAL ONE; -KETAMINE HCL 500 MG/10 ML VIAL ONE; -METOPROLOL TARTRATE 5 MG/5 ML VIAL ONE
[2023-03-28 09:00] VITALS: BMI 29.4
[2023-03-28 13:17] VITALS: BP 108/60; PULSE 79; RESP 16; TEMP 98.3
== END | disposition home or self-care (01) ==
LOC: FECT 08:42
PROVIDERS: ATTEND Psychiatry & Neurology Psychiatry
PROC: GZB4ZZZ Other Electroconvulsive Therapy (ICD-10-PCS; principal; 2023-03-28 12:17)
DX: F31.62 Bipolar disorder, current episode mixed, moderate (principal)
CPT/HCPCS: 90870; 94760

== ENCOUNTER 2023-04-04 07:20 | Day surgery (SDC) | payer OTHER ==
[2023-04-01 16:01] VITALS: BMI 29.4
[2023-04-04 09:53] VITALS: TEMP 97.7
[2023-04-04 10:15] VITALS: BP 104/62; PULSE 77; RESP 18
== END 2023-04-04 10:15 | disposition home or self-care (01) ==
LOC: FECT 07:20
PROVIDERS: ATTEND Student in an Organized Health Care Education/Training Program
PROC: GZB4ZZZ Other Electroconvulsive Therapy (ICD-10-PCS; principal; 2023-04-04 08:57)
DX: F31.9 Bipolar disorder, unspecified (principal)
CPT/HCPCS: 90870; 94760

== ENCOUNTER 2023-04-11 09:44 | Day surgery (SDC) | payer OTHER ==
[2023-04-04 14:08] VITALS: BMI 29.4
[2023-04-11] MEDS ORDERED: KETAMINE HCL 100 MG/ML - 5ML VIAL ONE (11:20)
[2023-04-11] MEDS ORDERED: ONDANSETRON 4 MG/2 ML VIAL IVPUSH PRN (11:43)
[2023-04-11] MEDS ORDERED: LACTATED RINGERS SOLUTION 1,000 ML IV SCH (11:45)
[2023-04-11 12:44] VITALS: RESP 18; TEMP 98.2
[2023-04-11 12:46] VITALS: BP 121/76; PULSE 68
== END 2023-04-11 12:45 | disposition home or self-care (01) ==
LOC: FECT 09:44
PROVIDERS: ATTEND Student in an Organized Health Care Education/Training Program
PROC: GZB4ZZZ Other Electroconvulsive Therapy (ICD-10-PCS; principal; 2023-04-11 11:35)
DX: F31.62 Bipolar disorder, current episode mixed, moderate (principal)
CPT/HCPCS: 90870; 94760

== ENCOUNTER 2023-04-17 06:02 | Day surgery (SDC) | payer OTHER ==
[2023-04-14 13:53] VITALS: BMI 29.4
[2023-04-17 06:35] VITALS: PULSE 64
[2023-04-17] MEDS ORDERED: KETAMINE HCL 100 MG/ML - 5ML VIAL ONE (07:33)
[2023-04-17 08:30] VITALS: BP 104/58; RESP 16; TEMP 98.4
== END 2023-04-17 08:50 | disposition home or self-care (01) ==
LOC: FECT 06:02
PROVIDERS: ATTEND Psychiatry & Neurology Psychiatry
PROC: GZB4ZZZ Other Electroconvulsive Therapy (ICD-10-PCS; principal; 2023-04-17 07:42)
DX: F31.62 Bipolar disorder, current episode mixed, moderate (principal)
CPT/HCPCS: 90870; 94760

== ENCOUNTER 2023-04-29 08:34 | Day surgery (SDC) | payer OTHER ==
[2023-04-17 16:06] VITALS: BMI 29.4
[2023-04-29] MEDS ORDERED: KETAMINE HCL 100 MG/ML - 5ML VIAL ONE (11:38)
[2023-04-29 12:31] VITALS: TEMP 97.2
[2023-04-29 12:34] VITALS: BP 112/72; PULSE 72; RESP 18
== END 2023-04-29 12:45 | disposition home or self-care (01) ==
LOC: FECT 08:34
PROVIDERS: ATTEND Student in an Organized Health Care Education/Training Program
PROC: GZB4ZZZ Other Electroconvulsive Therapy (ICD-10-PCS; principal; 2023-04-29 11:51)
DX: F31.9 Bipolar disorder, unspecified (principal)
CPT/HCPCS: 90870; 94760

== ENCOUNTER 2023-05-08 07:16 | Day surgery (SDC) | payer OTHER ==
[2023-05-01 14:27] VITALS: BMI 29.4
[2023-05-08] MEDS ORDERED: KETAMINE HCL 100 MG/ML - 5ML VIAL ONE (08:49)
[2023-05-08] MEDS ORDERED: SUCCINYLCHOLINE CHLORIDE 200 MG/10 ML SYRINGE ONE (08:52)
[2023-05-08] MEDS ORDERED: PROPOFOL 20 ML ONE (08:52)
[2023-05-08 09:31] VITALS: TEMP 97.4
[2023-05-08 10:00] VITALS: RESP 18
[2023-05-08 10:20] VITALS: BP 121/76; PULSE 77
== END 2023-05-08 10:30 | disposition home or self-care (01) ==
LOC: FECT 07:16
PROVIDERS: ATTEND Student in an Organized Health Care Education/Training Program
PROC: GZB4ZZZ Other Electroconvulsive Therapy (ICD-10-PCS; principal; 2023-05-08 09:13)
DX: F31.9 Bipolar disorder, unspecified (principal)
CPT/HCPCS: 90870; 94760

== ENCOUNTER 2023-05-13 07:09 | Day surgery (SDC) | payer OTHER ==
[2023-05-12 07:27] VITALS: BMI 29.4
[2023-05-13] MEDS ORDERED: KETAMINE HCL 100 MG/ML - 5ML VIAL ONE (08:34)
[2023-05-13 09:39] VITALS: RESP 18
[2023-05-13 09:42] VITALS: PULSE 68; TEMP 97.6
[2023-05-13 11:04] VITALS: BP 120/70
== END 2023-05-13 10:35 | disposition home or self-care (01) ==
LOC: FECT 07:09
PROVIDERS: ATTEND Student in an Organized Health Care Education/Training Program
PROC: GZB4ZZZ Other Electroconvulsive Therapy (ICD-10-PCS; principal; 2023-05-13 08:54)
DX: F31.9 Bipolar disorder, unspecified (principal)
CPT/HCPCS: 90870; 94760

== ENCOUNTER 2023-05-30 07:16 | Day surgery (SDC) | payer OTHER ==
[2023-05-30 07:45] VITALS: BMI 29.4
[2023-05-30] MEDS ORDERED: KETAMINE HCL 100 MG/ML - 5ML VIAL ONE (08:50)
[2023-05-30 09:55] VITALS: RESP 18; TEMP 97.4
[2023-05-30 10:34] VITALS: BP 110/80; PULSE 64
== END 2023-05-30 10:34 | disposition home or self-care (01) ==
LOC: FECT 07:16
PROVIDERS: ATTEND Student in an Organized Health Care Education/Training Program
PROC: GZB4ZZZ Other Electroconvulsive Therapy (ICD-10-PCS; principal; 2023-05-30 09:10)
DX: F31.62 Bipolar disorder, current episode mixed, moderate (principal)
CPT/HCPCS: 90870; 94760

== ENCOUNTER 2023-06-13 08:49 | Day surgery (SDC) | payer OTHER ==
[2023-05-30 15:18] VITALS: BMI 29.4
[2023-06-13] MEDS ORDERED: KETAMINE HCL 100 MG/ML - 5ML VIAL ONE (10:38)
[2023-06-13] MEDS ORDERED: SUCCINYLCHOLINE CHLORIDE 200 MG/10 ML SYRINGE ONE (10:45)
[2023-06-13 11:49] VITALS: PULSE 61; RESP 18; TEMP 97.4
[2023-06-13 12:28] VITALS: BP 112/74
== END 2023-06-13 12:15 | disposition home or self-care (01) ==
LOC: FECT 08:49
PROVIDERS: ATTEND Student in an Organized Health Care Education/Training Program
PROC: GZB4ZZZ Other Electroconvulsive Therapy (ICD-10-PCS; principal; 2023-06-13 10:50)
DX: F31.62 Bipolar disorder, current episode mixed, moderate (principal)
CPT/HCPCS: 90870; 94760

== ENCOUNTER 2023-06-20 08:52 | Day surgery (SDC) | payer OTHER ==
[2023-06-17 13:28] VITALS: BMI 29.4
[2023-06-20] MEDS ORDERED: KETAMINE HCL 100 MG/ML - 5ML VIAL ONE (09:57)
[2023-06-20 11:47] VITALS: RESP 18; TEMP 98
[2023-06-20 11:50] VITALS: BP 107/70; PULSE 69
== END 2023-06-20 12:00 | disposition home or self-care (01) ==
LOC: FECT 08:52
PROVIDERS: ATTEND Student in an Organized Health Care Education/Training Program
PROC: GZB4ZZZ Other Electroconvulsive Therapy (ICD-10-PCS; principal; 2023-06-20 10:37)
DX: F31.9 Bipolar disorder, unspecified (principal)
CPT/HCPCS: 90870; 94760

== ENCOUNTER 2023-06-27 08:31 | Day surgery (SDC) | payer OTHER ==
[2023-06-23 14:56] VITALS: BMI 29.4
[2023-06-27] MEDS ORDERED: KETAMINE HCL 100 MG/ML - 5ML VIAL ONE (08:59)
[2023-06-27] MEDS ORDERED: MIDAZOLAM HCL 2 MG/2 ML SINGLE DOSE VIAL ONE (10:08)
[2023-06-27] MEDS: MIDAZOLAM HCL 2 MG/2 ML SINGLE DOSE VIAL IVPUSH ONE (10:12)
[2023-06-27 11:32] VITALS: RESP 18; TEMP 97.2
[2023-06-27] MEDS: LORazepam 0.5 MG TABLET PO ONE (11:37)
[2023-06-27 12:24] VITALS: BP 130/70; PULSE 62
[2023-06-27] MEDS ORDERED: LORazepam 1 MG TABLET PO ONE (13:15)
== END 2023-06-27 12:24 | disposition home or self-care (01) ==
LOC: FECT 08:31
PROVIDERS: ATTEND Student in an Organized Health Care Education/Training Program
PROC: GZB4ZZZ Other Electroconvulsive Therapy (ICD-10-PCS; principal; 2023-06-27 09:19)
DX: F31.9 Bipolar disorder, unspecified (principal)
CPT/HCPCS: 90870; 94760

== ENCOUNTER 2023-07-04 08:54 | Day surgery (SDC) | payer OTHER ==
[2023-06-30 11:32] VITALS: BMI 29.4
[2023-07-04] MEDS ORDERED: KETAMINE HCL 100 MG/ML - 5ML VIAL ONE (11:47)
[2023-07-04 12:17] VITALS: TEMP 97
[2023-07-04] MEDS: LORazepam 2 MG/ML SDV VIAL IVPUSH ONE (12:35)
[2023-07-04 13:13] VITALS: RESP 20
[2023-07-04 13:55] VITALS: BP 127/69; PULSE 69
== END 2023-07-04 14:12 | disposition home or self-care (01) ==
LOC: FECT 08:54
PROVIDERS: ATTEND Student in an Organized Health Care Education/Training Program
PROC: GZB4ZZZ Other Electroconvulsive Therapy (ICD-10-PCS; principal; 2023-07-04 11:59)
DX: F31.62 Bipolar disorder, current episode mixed, moderate (principal)
CPT/HCPCS: 90870; 94760

== ENCOUNTER 2023-07-11 08:55 | Day surgery (SDC) | payer OTHER ==
[2023-07-09 15:36] VITALS: BMI 29.5
[2023-07-11] MEDS ORDERED: KETAMINE HCL 100 MG/ML - 5ML VIAL ONE (09:36)
[2023-07-11 11:42] VITALS: PULSE 68; RESP 16; TEMP 97.5
[2023-07-11 11:57] VITALS: BP 108/50
== END 2023-07-11 12:03 | disposition home or self-care (01) ==
LOC: FECT 08:55
PROVIDERS: ATTEND Student in an Organized Health Care Education/Training Program
PROC: GZB4ZZZ Other Electroconvulsive Therapy (ICD-10-PCS; principal; 2023-07-11 10:17)
DX: F31.9 Bipolar disorder, unspecified (principal)
CPT/HCPCS: 90870; 94760

== ENCOUNTER 2023-07-17 09:16 | Day surgery (SDC) | payer OTHER ==
[2023-07-14 16:43] VITALS: BMI 29.5
[2023-07-17 09:28] VITALS: RESP 18
[2023-07-17] MEDS ORDERED: KETAMINE HCL 100 MG/ML - 5ML VIAL ONE (10:42)
[2023-07-17 12:06] VITALS: PULSE 94; TEMP 97.2
[2023-07-17 12:54] VITALS: BP 129/64
== END 2023-07-17 12:37 | disposition home or self-care (01) ==
LOC: FECT 09:16
PROVIDERS: ATTEND Student in an Organized Health Care Education/Training Program
PROC: GZB4ZZZ Other Electroconvulsive Therapy (ICD-10-PCS; principal; 2023-07-17 11:22)
DX: F31.9 Bipolar disorder, unspecified (principal)
CPT/HCPCS: 90870; 94760

== ENCOUNTER 2023-07-25 08:56 | Day surgery (SDC) | payer OTHER ==
[2023-07-21 08:14] VITALS: BMI 29.5
[2023-07-25] MEDS ORDERED: KETAMINE HCL 100 MG/ML - 5ML VIAL ONE (10:47)
[2023-07-25] MEDS ORDERED: PROPOFOL 40 ML ONE (10:47)
[2023-07-25] MEDS ORDERED: SUCCINYLCHOLINE CHLORIDE 200 MG/10 ML SYRINGE ONE (10:48)
[2023-07-25] MEDS ORDERED: KETOROLAC TROMETHAMINE 30 MG/1 ML VIAL ONE (10:57)
[2023-07-25] MEDS ORDERED: DEXAMETHASONE SOD PHOSPHATE 4 MG/1 ML VIAL ONE (10:57)
[2023-07-25] MEDS ORDERED: ONDANSETRON 4 MG/2 ML VIAL ONE (10:57)
[2023-07-25 11:08] VITALS: TEMP 97
[2023-07-25 12:07] VITALS: RESP 18
[2023-07-25 12:12] VITALS: BP 108/60; PULSE 62
== END 2023-07-25 12:15 | disposition home or self-care (01) ==
LOC: FECT 08:56
PROVIDERS: ATTEND Student in an Organized Health Care Education/Training Program
PROC: GZB4ZZZ Other Electroconvulsive Therapy (ICD-10-PCS; principal; 2023-07-25 10:55)
DX: F31.62 Bipolar disorder, current episode mixed, moderate (principal)
CPT/HCPCS: 90870; 94760

== ENCOUNTER 2023-08-01 09:12 | Day surgery (SDC) | payer OTHER ==
[2023-07-25 14:36] VITALS: BMI 29.5
[2023-08-01] MEDS ORDERED: KETAMINE HCL 100 MG/ML - 5ML VIAL ONE (11:08)
[2023-08-01 12:35] VITALS: PULSE 66; RESP 16; TEMP 97.5
[2023-08-01 12:53] VITALS: BP 106/69
== END 2023-08-01 12:45 | disposition home or self-care (01) ==
LOC: FECT 09:12
PROVIDERS: ATTEND Student in an Organized Health Care Education/Training Program
PROC: GZB4ZZZ Other Electroconvulsive Therapy (ICD-10-PCS; principal; 2023-08-01 11:27)
DX: F31.9 Bipolar disorder, unspecified (principal)
CPT/HCPCS: 90870; 94760

== ENCOUNTER 2023-08-08 09:01 | Day surgery (SDC) | payer OTHER ==
[2023-08-04 10:02] VITALS: BMI 29.5
[2023-08-08] MEDS ORDERED: KETAMINE HCL 100 MG/ML - 5ML VIAL ONE (10:52)
[2023-08-08 11:21] LABS: HEMOGLOBIN 13.3 G/dL (10.7-15.3); MCH 28.3 pg (25.7-33.7); MCHC 33.1 g/dl (32.0-36.0); MEAN CELL VOLUME 85.4 fl (80-96); MEAN PLT VOLUME 7.3 fl (7.5-11.1); PLATELET COUNT 184.4 10^3/uL (134-434); RBC 4.68 10^6/uL (3.60-5.2); RDW 13.9 % (11.6-15.6); WHITE BLOOD COUNT 3.9 10^3/uL (4.0-10.8)
[2023-08-08 11:25] VITALS: TEMP 97.5
[2023-08-08 11:30] LABS: ALBUMIN 4.2 g/dl (3.4-5.0); BILIRUBIN,TOTAL 0.8 mg/dl (0.2-1); CALCIUM 9.1 mg/dl (8.5-10.1); CREATININE 1.1 mg/dl (0.6-1.3); POTASSIUM 4.3 mmol/L (3.5-5.1); TOT PROT 6.2 g/dl (6.4-8.2)
[2023-08-08 12:21] VITALS: BP 121/64; PULSE 64; RESP 18
== END 2023-08-08 12:30 | disposition home or self-care (01) ==
LOC: FECT 09:01
PROVIDERS: ATTEND Student in an Organized Health Care Education/Training Program
PROC: GZB4ZZZ Other Electroconvulsive Therapy (ICD-10-PCS; principal; 2023-08-08 11:08)
DX: F31.9 Bipolar disorder, unspecified (principal)
CPT/HCPCS: 36415; 80053; 85027; 90870; 94760

== ENCOUNTER 2023-08-15 09:13 | Day surgery (SDC) | payer OTHER ==
[2023-08-11 09:40] VITALS: BMI 29.5
[2023-08-15] MEDS ORDERED: KETAMINE HCL 100 MG/ML - 5ML VIAL ONE (10:20)
[2023-08-15] MEDS ORDERED: KETOROLAC TROMETHAMINE 30 MG/1 ML VIAL ONE (10:20)
[2023-08-15 10:52] VITALS: RESP 18
[2023-08-15 11:25] VITALS: BP 123/68; TEMP 98
[2023-08-15 12:34] VITALS: PULSE 72
== END 2023-08-15 12:37 | disposition home or self-care (01) ==
LOC: FECT 09:13
PROVIDERS: ATTEND Psychiatry & Neurology Psychiatry
PROC: GZB4ZZZ Other Electroconvulsive Therapy (ICD-10-PCS; principal; 2023-08-15 10:35)
DX: F31.62 Bipolar disorder, current episode mixed, moderate (principal)
CPT/HCPCS: 90870; 94760

== ENCOUNTER 2023-08-22 08:05 | Day surgery (SDC) | payer OTHER ==
[2023-08-22 08:26] VITALS: BMI 29.5
[2023-08-22] MEDS ORDERED: KETAMINE HCL 100 MG/ML - 5ML VIAL ONE (09:33)
[2023-08-22] MEDS ORDERED: ONDANSETRON 4 MG/2 ML VIAL ONE (09:37)
[2023-08-22] MEDS ORDERED: LIDOCAINE HCL/PF 2% SDV 5ML VIAL ONE (09:37)
[2023-08-22] MEDS ORDERED: PROPOFOL 20 ML ONE (09:38)
[2023-08-22] MEDS ORDERED: SUCCINYLCHOLINE CHLORIDE 200 MG/10 ML SYRINGE ONE (09:38)
[2023-08-22 10:19] VITALS: TEMP 97.6
[2023-08-22 10:59] VITALS: RESP 18
[2023-08-22 11:06] VITALS: BP 121/71; PULSE 64
== END 2023-08-22 11:10 | disposition home or self-care (01) ==
LOC: FECT 08:05
PROVIDERS: ATTEND Student in an Organized Health Care Education/Training Program
PROC: GZB4ZZZ Other Electroconvulsive Therapy (ICD-10-PCS; principal; 2023-08-22 09:58)
DX: F31.9 Bipolar disorder, unspecified (principal)
CPT/HCPCS: 90870; 94760

== ENCOUNTER 2023-09-05 05:52 | Day surgery (SDC) | payer OTHER ==
[2023-09-05 06:34] VITALS: BMI 27.8
[2023-09-05] MEDS ORDERED: PROPOFOL 20 ML ONE (07:09)
[2023-09-05] MEDS ORDERED: KETAMINE HCL 200 MG/20 ML VIAL ONE (07:09)
[2023-09-05] MEDS ORDERED: SUCCINYLCHOLINE CHLORIDE 200 MG/10 ML SYRINGE ONE ×2 (07:09→07:43)
[2023-09-05] MEDS ORDERED: ONDANSETRON 4 MG/2 ML VIAL ONE (07:23)
[2023-09-05 08:17] VITALS: TEMP 97.1
[2023-09-05 09:32] VITALS: BP 122/72; PULSE 60; RESP 19
== END 2023-09-05 09:20 | disposition home or self-care (01) ==
LOC: FECT 05:52
PROVIDERS: ATTEND Psychiatry & Neurology Psychiatry
PROC: GZB4ZZZ Other Electroconvulsive Therapy (ICD-10-PCS; principal; 2023-09-05 07:20)
DX: F31.62 Bipolar disorder, current episode mixed, moderate (principal)
CPT/HCPCS: 90870; 94760

== ENCOUNTER 2023-09-12 09:45 | Day surgery (SDC) | payer OTHER ==
[2023-09-08 09:40] VITALS: BMI 27.8
[2023-09-12] MEDS ORDERED: KETAMINE HCL 100 MG/ML - 5ML VIAL ONE (10:49)
[2023-09-12 12:19] VITALS: RESP 18; TEMP 97.3
[2023-09-12] MEDS ORDERED: LACTATED RINGERS SOLUTION 1,000 ML IV SCH (13:45)
[2023-09-12 14:08] VITALS: BP 108/62; PULSE 64
== END 2023-09-12 12:50 | disposition home or self-care (01) ==
LOC: FECT 09:45
PROVIDERS: ATTEND Student in an Organized Health Care Education/Training Program
PROC: GZB4ZZZ Other Electroconvulsive Therapy (ICD-10-PCS; principal; 2023-09-12 11:06)
DX: F31.62 Bipolar disorder, current episode mixed, moderate (principal)
CPT/HCPCS: 90870; 94760

== ENCOUNTER 2023-09-19 08:49 | Day surgery (SDC) | payer OTHER ==
[2023-09-19 09:07] VITALS: BMI 27.8
[2023-09-19] MEDS ORDERED: KETAMINE HCL 100 MG/ML - 5ML VIAL ONE (11:42)
[2023-09-19 12:21] VITALS: TEMP 98.1
[2023-09-19 12:56] VITALS: BP 110/64; PULSE 78; RESP 16
== END 2023-09-19 13:17 | disposition home or self-care (01) ==
LOC: FECT 08:49
PROVIDERS: ATTEND Student in an Organized Health Care Education/Training Program
PROC: GZB4ZZZ Other Electroconvulsive Therapy (ICD-10-PCS; principal; 2023-09-19 11:57)
DX: F31.9 Bipolar disorder, unspecified (principal)
CPT/HCPCS: 90870; 94760

== ENCOUNTER 2023-09-26 06:15 | Day surgery (SDC) | payer OTHER ==
[2023-09-26 06:41] VITALS: BMI 28.0
[2023-09-26] MEDS ORDERED: KETAMINE HCL 100 MG/ML - 5ML VIAL ONE (07:55)
[2023-09-26 09:06] VITALS: BP 115/62; PULSE 68; RESP 17; TEMP 97.3
== END 2023-09-26 10:00 | disposition home or self-care (01) ==
LOC: FECT 06:15
PROVIDERS: ATTEND Student in an Organized Health Care Education/Training Program
PROC: GZB4ZZZ Other Electroconvulsive Therapy (ICD-10-PCS; principal; 2023-09-26 08:11)
DX: F32.A Depression, unspecified (principal)
CPT/HCPCS: 90870; 94760

== ENCOUNTER 2023-10-03 08:26 | Day surgery (SDC) | payer OTHER ==
[2023-10-03 08:40] VITALS: BMI 28.0
[2023-10-03] MEDS ORDERED: KETAMINE HCL 100 MG/ML - 5ML VIAL ONE (09:25)
[2023-10-03 11:20] VITALS: TEMP 98.1
[2023-10-03 11:26] VITALS: BP 124/78; PULSE 68; RESP 18
== END 2023-10-03 11:27 | disposition home or self-care (01) ==
LOC: FECT 08:26
PROVIDERS: ATTEND Student in an Organized Health Care Education/Training Program
PROC: GZB4ZZZ Other Electroconvulsive Therapy (ICD-10-PCS; principal; 2023-10-03 09:44)
DX: F31.9 Bipolar disorder, unspecified (principal)
CPT/HCPCS: 90870; 94760

== ENCOUNTER 2023-10-08 06:41 | Day surgery (SDC) | payer OTHER ==
[2023-10-03 15:59] VITALS: BMI 28.0
[2023-10-08] MEDS ORDERED: KETAMINE HCL 100 MG/ML - 5ML VIAL ONE (07:20)
[2023-10-08] MEDS ORDERED: LIDOCAINE HCL/PF 2% SDV 5ML VIAL ONE (07:27)
[2023-10-08] MEDS ORDERED: SUCCINYLCHOLINE CHLORIDE 200 MG/10 ML SYRINGE ONE (07:27)
[2023-10-08] MEDS ORDERED: PROPOFOL 20 ML ONE (07:27)
[2023-10-08 08:59] VITALS: RESP 18; TEMP 98
[2023-10-08 09:10] VITALS: BP 113/69; PULSE 69
== END 2023-10-08 09:30 | disposition home or self-care (01) ==
LOC: FECT 06:41
PROVIDERS: ATTEND Student in an Organized Health Care Education/Training Program
PROC: GZB4ZZZ Other Electroconvulsive Therapy (ICD-10-PCS; principal; 2023-10-08 07:54)
DX: F31.62 Bipolar disorder, current episode mixed, moderate (principal)
CPT/HCPCS: 90870; 94760

== ENCOUNTER 2023-10-17 09:50 | Day surgery (SDC) | payer OTHER ==
[2023-10-13 14:55] VITALS: BMI 28.0
[2023-10-17] MEDS ORDERED: KETAMINE HCL 100 MG/ML - 5ML VIAL ONE (10:47)
[2023-10-17 11:59] VITALS: TEMP 97.8
[2023-10-17 12:45] VITALS: BP 114/64; PULSE 61; RESP 18
== END 2023-10-17 12:45 | disposition home or self-care (01) ==
LOC: FECT 09:50
PROVIDERS: ATTEND Student in an Organized Health Care Education/Training Program
PROC: GZB4ZZZ Other Electroconvulsive Therapy (ICD-10-PCS; principal; 2023-10-17 11:32)
DX: F31.9 Bipolar disorder, unspecified (principal); Z88.0 Allergy status to penicillin; Z88.8 Allergy status to other drugs, medicaments and biological substances
CPT/HCPCS: 90870; 94760

== ENCOUNTER 2023-10-24 06:30 | Day surgery (SDC) | payer OTHER ==
[2023-10-20 12:54] VITALS: BMI 28.0
[2023-10-24 10:28] VITALS: TEMP 97
[2023-10-24 10:55] VITALS: BP 132/65; PULSE 68; RESP 18
== END 2023-10-24 10:00 | disposition home or self-care (01) ==
LOC: FECT 06:30
PROVIDERS: ATTEND Student in an Organized Health Care Education/Training Program
PROC: GZB4ZZZ Other Electroconvulsive Therapy (ICD-10-PCS; principal; 2023-10-24 08:21)
DX: F31.9 Bipolar disorder, unspecified (principal)
CPT/HCPCS: 90870; 94760

== ENCOUNTER 2023-10-31 09:28 | Day surgery (SDC) | payer OTHER ==
[2023-10-27 11:53] VITALS: BMI 28.0
[2023-10-31] MEDS ORDERED: KETAMINE HCL 100 MG/ML - 5ML VIAL ONE (11:20)
[2023-10-31 12:20] VITALS: RESP 18; TEMP 97.7
[2023-10-31 12:53] VITALS: BP 114/68; PULSE 78
== END 2023-10-31 13:01 | disposition home or self-care (01) ==
LOC: FECT 09:28
PROVIDERS: ATTEND Student in an Organized Health Care Education/Training Program
PROC: GZB4ZZZ Other Electroconvulsive Therapy (ICD-10-PCS; principal; 2023-10-31 11:29)
DX: F31.9 Bipolar disorder, unspecified (principal)
CPT/HCPCS: 90870; 94760

== ENCOUNTER 2023-11-07 08:28 | Day surgery (SDC) | payer OTHER ==
[2023-11-03 17:48] VITALS: BMI 28.0
[2023-11-07] MEDS ORDERED: KETAMINE HCL 100 MG/ML - 5ML VIAL ONE (09:49)
[2023-11-07 11:28] VITALS: RESP 18; TEMP 98
[2023-11-07 11:30] VITALS: BP 121/80; PULSE 69
== END 2023-11-07 11:30 | disposition home or self-care (01) ==
LOC: FECT 08:28
PROVIDERS: ATTEND Student in an Organized Health Care Education/Training Program
PROC: GZB4ZZZ Other Electroconvulsive Therapy (ICD-10-PCS; principal; 2023-11-07 10:14)
DX: F31.62 Bipolar disorder, current episode mixed, moderate (principal)
CPT/HCPCS: 90870; 94760

== ENCOUNTER 2023-11-14 06:48 | Day surgery (SDC) | payer OTHER ==
[2023-11-10 14:17] VITALS: BMI 28.0
[2023-11-14] MEDS ORDERED: KETAMINE HCL 100 MG/ML - 5ML VIAL ONE (07:27)
[2023-11-14] MEDS ORDERED: LACTATED RINGERS SOLUTION 1,000 ML IV SCH (08:15)
[2023-11-14 09:40] VITALS: RESP 16; TEMP 97.7
[2023-11-14 10:18] VITALS: BP 100/56; PULSE 78
== END 2023-11-14 10:05 | disposition home or self-care (01) ==
LOC: FECT 06:48
PROVIDERS: ATTEND Student in an Organized Health Care Education/Training Program
PROC: GZB4ZZZ Other Electroconvulsive Therapy (ICD-10-PCS; principal; 2023-11-14 08:29)
DX: F31.9 Bipolar disorder, unspecified (principal)
CPT/HCPCS: 90870; 94760

== ENCOUNTER 2023-11-21 07:36 | Day surgery (SDC) | payer OTHER ==
[2023-11-21 07:50] VITALS: BMI 27.5
[2023-11-21] MEDS ORDERED: ONDANSETRON 4 MG/2 ML VIAL IVPUSH PRN (08:32)
[2023-11-21] MEDS ORDERED: LACTATED RINGERS SOLUTION 1,000 ML IV SCH (08:45)
[2023-11-21] MEDS ORDERED: ONDANSETRON 4 MG/2 ML VIAL ONE (08:56)
[2023-11-21] MEDS ORDERED: SUCCINYLCHOLINE CHLORIDE 200 MG/10 ML SYRINGE ONE (08:56)
[2023-11-21] MEDS ORDERED: KETOROLAC TROMETHAMINE 30 MG/1 ML VIAL ONE (08:56)
[2023-11-21] MEDS ORDERED: PROPOFOL 20 ML ONE (08:56)
[2023-11-21] MEDS ORDERED: KETAMINE HCL 100 MG/ML - 5ML VIAL ONE (08:57)
[2023-11-21] MEDS ORDERED: LIDOCAINE HCL/PF 2% SDV 5ML VIAL ONE (09:07)
[2023-11-21 10:03] VITALS: RESP 18; TEMP 97.9
[2023-11-21 11:24] VITALS: BP 110/64; PULSE 64
== END 2023-11-21 11:10 | disposition home or self-care (01) ==
LOC: FECT 07:36
PROVIDERS: ATTEND Student in an Organized Health Care Education/Training Program
PROC: GZB4ZZZ Other Electroconvulsive Therapy (ICD-10-PCS; principal; 2023-11-21 09:00)
DX: F31.9 Bipolar disorder, unspecified (principal)
CPT/HCPCS: 90870; 94760

== ENCOUNTER 2023-11-28 09:35 | Day surgery (SDC) | payer OTHER ==
[2023-11-21 13:18] VITALS: BMI 27.5
[2023-11-28] MEDS ORDERED: KETAMINE HCL 100 MG/ML - 5ML VIAL ONE (12:11)
[2023-11-28 13:13] VITALS: RESP 18; TEMP 97.6
[2023-11-28 13:59] VITALS: BP 116/74; PULSE 66
== END 2023-11-28 13:46 | disposition home or self-care (01) ==
LOC: FECT 09:35
PROVIDERS: ATTEND Student in an Organized Health Care Education/Training Program
PROC: GZB4ZZZ Other Electroconvulsive Therapy (ICD-10-PCS; principal; 2023-11-28 12:29)
DX: F31.9 Bipolar disorder, unspecified (principal)
CPT/HCPCS: 90870; 94760

== ENCOUNTER 2023-12-12 08:13 | Day surgery (SDC) | payer OTHER ==
[2023-12-09 09:24] VITALS: BMI 27.5
[2023-12-12] MEDS ORDERED: KETAMINE HCL 100 MG/ML - 5ML VIAL ONE (09:25)
[2023-12-12] MEDS ORDERED: KETOROLAC TROMETHAMINE 30 MG/1 ML VIAL ONE (09:34)
[2023-12-12] MEDS ORDERED: ONDANSETRON 4 MG/2 ML VIAL ONE (09:34)
[2023-12-12] MEDS ORDERED: DEXAMETHASONE SOD PHOSPHATE 4 MG/1 ML VIAL ONE (09:34)
[2023-12-12 13:07] VITALS: TEMP 98
[2023-12-12 13:23] VITALS: PULSE 58
[2023-12-12 13:27] VITALS: BP 110/64; RESP 17
== END 2023-12-12 12:00 | disposition home or self-care (01) ==
LOC: FECT 08:13
PROVIDERS: ATTEND Student in an Organized Health Care Education/Training Program
PROC: GZB4ZZZ Other Electroconvulsive Therapy (ICD-10-PCS; principal; 2023-12-12 09:33)
DX: F31.9 Bipolar disorder, unspecified (principal)
CPT/HCPCS: 90870; 94760

== ENCOUNTER 2023-12-19 11:17 | Day surgery (SDC) | payer OTHER ==
[2023-12-12 15:17] VITALS: BMI 27.5
[2023-12-19] MEDS ORDERED: KETAMINE HCL 100 MG/ML - 5ML VIAL ONE (12:53)
[2023-12-19] MEDS ORDERED: MIDAZOLAM HCL 2 MG/2 ML SINGLE DOSE VIAL ONE (13:30)
[2023-12-19] MEDS: MIDAZOLAM HCL 2 MG/2 ML SINGLE DOSE VIAL IVPUSH ONE (13:30)
[2023-12-19 13:57] VITALS: RESP 18
[2023-12-19 14:22] VITALS: TEMP 97.2
[2023-12-19 14:54] VITALS: BP 120/70; PULSE 78
== END 2023-12-19 14:52 | disposition home or self-care (01) ==
LOC: FECT 11:17
PROVIDERS: ATTEND Student in an Organized Health Care Education/Training Program
PROC: GZB4ZZZ Other Electroconvulsive Therapy (ICD-10-PCS; principal; 2023-12-19 13:11)
DX: F31.9 Bipolar disorder, unspecified (principal)
CPT/HCPCS: 90870; 94760

== ENCOUNTER 2023-12-26 06:18 | Day surgery (SDC) | payer OTHER ==
[2023-12-22 13:45] VITALS: BMI 27.5
[2023-12-26] MEDS ORDERED: KETAMINE HCL 100 MG/ML - 5ML VIAL ONE (07:24)
[2023-12-26] MEDS ORDERED: MIDAZOLAM HCL 2 MG/2 ML SINGLE DOSE VIAL ONE (08:07)
[2023-12-26 09:58] VITALS: RESP 16; TEMP 97.7
[2023-12-26 10:35] VITALS: BP 133/78; PULSE 76
== END 2023-12-26 10:30 | disposition home or self-care (01) ==
LOC: FECT 06:18
PROVIDERS: ATTEND Student in an Organized Health Care Education/Training Program
PROC: GZB4ZZZ Other Electroconvulsive Therapy (ICD-10-PCS; principal; 2023-12-26 08:06)
DX: F31.9 Bipolar disorder, unspecified (principal)
CPT/HCPCS: 90870; 94760

== ENCOUNTER 2024-01-01 09:06 | Day surgery (SDC) | payer OTHER ==
[2023-12-31 15:35] VITALS: BMI 27.5
[2024-01-01] MEDS ORDERED: KETAMINE HCL 100 MG/ML - 5ML VIAL ONE (10:59)
[2024-01-01 12:00] VITALS: RESP 18; TEMP 97.3
[2024-01-01 14:10] VITALS: BP 112/76; PULSE 66
== END 2024-01-01 12:30 | disposition home or self-care (01) ==
LOC: FECT 09:06
PROVIDERS: ATTEND Psychiatry & Neurology Psychiatry
PROC: GZB4ZZZ Other Electroconvulsive Therapy (ICD-10-PCS; principal; 2024-01-01 11:13)
DX: F31.9 Bipolar disorder, unspecified (principal)
CPT/HCPCS: 90870; 94760

== ENCOUNTER 2024-01-02 06:49 | Day surgery (SDC) | payer OTHER ==
[2024-01-02] MEDS ORDERED: PROPOFOL 100 ML ONE (07:08)
[2024-01-02] MEDS ORDERED: SUCCINYLCHOLINE CHLORIDE 200 MG/10 ML SYRINGE ONE (07:16)
[2024-01-02 07:18] VITALS: BMI 27.5
[2024-01-02] MEDS ORDERED: ONDANSETRON 4 MG/2 ML VIAL IVPUSH PRN (07:23)
[2024-01-02] MEDS ORDERED: LACTATED RINGERS SOLUTION 1,000 ML IV SCH (07:30)
[2024-01-02] MEDS ORDERED: KETAMINE HCL 200 MG/20 ML VIAL ONE (07:45)
[2024-01-02 08:55] VITALS: PULSE 68; RESP 18; TEMP 97.8
[2024-01-02 09:50] VITALS: BP 117/50
== END 2024-01-02 09:40 | disposition home or self-care (01) ==
LOC: FECT 06:49
PROVIDERS: ATTEND Student in an Organized Health Care Education/Training Program
PROC: GZB4ZZZ Other Electroconvulsive Therapy (ICD-10-PCS; principal; 2024-01-02 08:14)
DX: F31.9 Bipolar disorder, unspecified (principal)
CPT/HCPCS: 90870; 94760

== ENCOUNTER 2024-01-08 10:03 | Day surgery (SDC) | payer OTHER ==
[2024-01-02 16:24] VITALS: BMI 27.5
[2024-01-08] MEDS ORDERED: PROPOFOL 20 ML ONE (12:03)
[2024-01-08] MEDS ORDERED: SUCCINYLCHOLINE CHLORIDE 200 MG/10 ML SYRINGE ONE (12:25)
[2024-01-08 13:51] VITALS: PULSE 74; RESP 18; TEMP 97.2
[2024-01-08 14:24] VITALS: BP 118/70
== END 2024-01-08 14:17 | disposition home or self-care (01) ==
LOC: FECT 10:03
PROVIDERS: ATTEND Student in an Organized Health Care Education/Training Program
PROC: GZB4ZZZ Other Electroconvulsive Therapy (ICD-10-PCS; principal; 2024-01-08 12:35)
DX: F31.9 Bipolar disorder, unspecified (principal)
CPT/HCPCS: 90870; 94760

== ENCOUNTER 2024-01-09 05:48 | Day surgery (SDC) | payer OTHER ==
[2024-01-02 13:57] VITALS: BMI 27.5
[2024-01-09] MEDS ORDERED: PROPOFOL 20 ML ONE (07:09)
[2024-01-09] MEDS ORDERED: ONDANSETRON 4 MG/2 ML VIAL ONE (07:09)
[2024-01-09] MEDS ORDERED: DEXAMETHASONE SOD PHOSPHATE 4 MG/1 ML VIAL ONE (07:09)
[2024-01-09] MEDS ORDERED: KETOROLAC TROMETHAMINE 30 MG/1 ML VIAL ONE (07:09)
[2024-01-09] MEDS ORDERED: SUCCINYLCHOLINE CHLORIDE 200 MG/10 ML SYRINGE ONE (07:09)
[2024-01-09] MEDS ORDERED: KETAMINE HCL 100 MG/ML - 5ML VIAL ONE (07:09)
[2024-01-09] MEDS ORDERED: LIDOCAINE HCL/PF 2% SDV 5ML VIAL ONE (07:44)
[2024-01-09] MEDS ORDERED: MIDAZOLAM HCL 2 MG/2 ML SINGLE DOSE VIAL ONE (07:47)
[2024-01-09 08:54] VITALS: RESP 18; TEMP 97.4
[2024-01-09 09:36] VITALS: BP 126/80; PULSE 56
== END 2024-01-09 09:24 | disposition home or self-care (01) ==
LOC: FECT 05:48
PROVIDERS: ATTEND Student in an Organized Health Care Education/Training Program
PROC: GZB4ZZZ Other Electroconvulsive Therapy (ICD-10-PCS; principal; 2024-01-09 07:55)
DX: F31.9 Bipolar disorder, unspecified (principal)
CPT/HCPCS: 90870; 94760

== ENCOUNTER 2024-01-15 08:58 | Day surgery (SDC) | payer OTHER ==
[2024-01-12 07:11] VITALS: BMI 27.7
[2024-01-15] MEDS ORDERED: KETAMINE HCL 100 MG/ML - 5ML VIAL ONE (11:00)
[2024-01-15] MEDS ORDERED: MIDAZOLAM HCL 2 MG/2 ML SINGLE DOSE VIAL ONE (11:14)
[2024-01-15 12:32] VITALS: TEMP 98.6
[2024-01-15 12:35] VITALS: BP 114/68; PULSE 72; RESP 19
== END 2024-01-15 11:55 | disposition home or self-care (01) ==
LOC: FECT 08:58
PROVIDERS: ATTEND Student in an Organized Health Care Education/Training Program
PROC: GZB4ZZZ Other Electroconvulsive Therapy (ICD-10-PCS; principal; 2024-01-15 11:13)
DX: F31.9 Bipolar disorder, unspecified (principal)
CPT/HCPCS: 90870; 94760

== ENCOUNTER 2024-01-22 08:17 | Day surgery (SDC) | payer OTHER ==
[2024-01-20 15:51] VITALS: BMI 27.7
[2024-01-22] MEDS ORDERED: KETAMINE HCL 100 MG/ML - 5ML VIAL ONE (09:56)
[2024-01-22] MEDS ORDERED: PROPOFOL 20 ML ONE (09:59)
[2024-01-22] MEDS ORDERED: LIDOCAINE HCL/PF 2% SDV 5ML VIAL ONE (10:00)
[2024-01-22] MEDS ORDERED: MIDAZOLAM HCL 2 MG/2 ML SINGLE DOSE VIAL ONE (10:27)
[2024-01-22 11:19] VITALS: RESP 18; TEMP 97.4
[2024-01-22 11:56] VITALS: BP 116/72; PULSE 68
== END 2024-01-22 11:51 | disposition home or self-care (01) ==
LOC: FECT 08:17
PROVIDERS: ATTEND Student in an Organized Health Care Education/Training Program
PROC: GZB4ZZZ Other Electroconvulsive Therapy (ICD-10-PCS; principal; 2024-01-22 10:23)
DX: F31.9 Bipolar disorder, unspecified (principal)
CPT/HCPCS: 90870; 94760

== ENCOUNTER 2024-01-23 07:44 | Day surgery (SDC) | payer OTHER ==
[2024-01-23 07:50] VITALS: BMI 27.7
[2024-01-23] MEDS ORDERED: MIDAZOLAM HCL 2 MG/2 ML SINGLE DOSE VIAL ONE (10:04)
[2024-01-23] MEDS ORDERED: KETAMINE HCL 100 MG/ML - 5ML VIAL ONE (10:04)
[2024-01-23] MEDS ORDERED: PROPOFOL 20 ML ONE (10:21)
[2024-01-23] MEDS ORDERED: LIDOCAINE HCL/PF 2% SDV 5ML VIAL ONE (10:26)
[2024-01-23 11:10] VITALS: RESP 16
[2024-01-23 12:07] VITALS: TEMP 97.7
[2024-01-23 12:08] VITALS: BP 110/64; PULSE 71
== END 2024-01-23 12:00 | disposition home or self-care (01) ==
LOC: FECT 07:44
PROVIDERS: ATTEND Student in an Organized Health Care Education/Training Program
PROC: GZB4ZZZ Other Electroconvulsive Therapy (ICD-10-PCS; principal; 2024-01-23 10:26)
DX: F31.9 Bipolar disorder, unspecified (principal)
CPT/HCPCS: 90870; 94760

== ENCOUNTER 2024-01-29 06:08 | Day surgery (SDC) | payer OTHER ==
[2024-01-23 16:56] VITALS: BMI 27.7
[2024-01-29] MEDS ORDERED: KETAMINE HCL 100 MG/ML - 5ML VIAL ONE (07:36)
[2024-01-29] MEDS ORDERED: KETOROLAC TROMETHAMINE 30 MG/1 ML VIAL ONE (07:39)
[2024-01-29] MEDS ORDERED: ONDANSETRON 4 MG/2 ML VIAL ONE (07:39)
[2024-01-29] MEDS ORDERED: DEXAMETHASONE SOD PHOSPHATE 4 MG/1 ML VIAL ONE (07:39)
[2024-01-29] MEDS ORDERED: LIDOCAINE HCL/PF 2% SDV 5ML VIAL ONE (07:44)
[2024-01-29] MEDS ORDERED: MIDAZOLAM HCL 2 MG/2 ML SINGLE DOSE VIAL ONE (07:55)
[2024-01-29] MEDS ORDERED: SODIUM CHLORIDE 0.9% P/F 10 ML VIAL IJ ONE (07:56)
[2024-01-29 08:47] VITALS: RESP 18
[2024-01-29 09:27] VITALS: BP 112/66; PULSE 69; TEMP 98
== END 2024-01-29 09:45 | disposition home or self-care (01) ==
LOC: FECT 06:08
PROVIDERS: ATTEND Student in an Organized Health Care Education/Training Program
PROC: GZB4ZZZ Other Electroconvulsive Therapy (ICD-10-PCS; principal; 2024-01-29 07:53)
DX: F31.9 Bipolar disorder, unspecified (principal)
CPT/HCPCS: 90870; 94760

== ENCOUNTER 2024-01-30 07:10 | Day surgery (SDC) | payer OTHER ==
[2024-01-29 12:00] VITALS: BMI 27.7
[2024-01-30 07:37] VITALS: RESP 16
[2024-01-30] MEDS ORDERED: KETAMINE HCL 100 MG/ML - 5ML VIAL ONE (08:19)
[2024-01-30] MEDS ORDERED: MIDAZOLAM HCL 2 MG/2 ML SINGLE DOSE VIAL ONE (08:36)
[2024-01-30 08:57] VITALS: TEMP 97.6
[2024-01-30 09:43] VITALS: PULSE 70
[2024-01-30 10:42] VITALS: BP 104/56
== END 2024-01-30 10:25 | disposition home or self-care (01) ==
LOC: FECT 07:10
PROVIDERS: ATTEND Student in an Organized Health Care Education/Training Program
PROC: GZB4ZZZ Other Electroconvulsive Therapy (ICD-10-PCS; principal; 2024-01-30 08:36)
DX: F31.9 Bipolar disorder, unspecified (principal)
CPT/HCPCS: 90870; 94760

== ENCOUNTER 2024-02-05 07:12 | Day surgery (SDC) | payer OTHER ==
[2024-02-05 07:33] VITALS: BMI 27.8
[2024-02-05] MEDS ORDERED: KETOROLAC TROMETHAMINE 30 MG/1 ML VIAL ONE (08:07)
[2024-02-05] MEDS ORDERED: LIDOCAINE HCL/PF 2% SDV 5ML VIAL ONE (08:07)
[2024-02-05] MEDS ORDERED: SUCCINYLCHOLINE CHLORIDE 200 MG/10 ML SYRINGE ONE (08:07)
[2024-02-05] MEDS ORDERED: PROPOFOL 20 ML ONE (08:07)
[2024-02-05] MEDS ORDERED: KETAMINE HCL 100 MG/ML - 5ML VIAL ONE (08:07)
[2024-02-05] MEDS ORDERED: MIDAZOLAM HCL 2 MG/2 ML SINGLE DOSE VIAL ONE (08:20)
[2024-02-05 08:35] VITALS: TEMP 97.7
[2024-02-05 09:00] VITALS: RESP 18
[2024-02-05 09:48] VITALS: BP 115/68; PULSE 69
[2024-02-05 13:17] LABS: ALBUMIN 4.2 g/dl (3.4-5.0); BILIRUBIN,TOTAL 0.8 mg/dl (0.2-1); CALCIUM 9.4 mg/dl (8.5-10.1); CREATININE 1.1 mg/dl (0.6-1.3); POTASSIUM 4.6 mmol/L (3.5-5.1); TOT PROT 6.1 g/dl (6.4-8.2)
[2024-02-05 13:30] LABS: HEMATOCRIT 38.5 % (32.4-45.2); HEMOGLOBIN 12.6 GM/dL (10.7-15.3); MCH 28.5 pg (25.7-33.7); MCHC 32.6 g/dl (32.0-36.0); MEAN CELL VOLUME 87.5 fl (80-96); MEAN PLT VOLUME 7.1 fl (7.5-11.1); PLATELET COUNT 245 10^3/uL (134-434); RBC 4.41 M/mm3 (3.60-5.2); RDW 12.8 % (11.6-15.6); WHITE BLOOD COUNT 7.3 K/mm3 (4.0-10.0)
== END 2024-02-05 10:10 | disposition home or self-care (01) ==
LOC: FECT 07:12
PROVIDERS: ATTEND Student in an Organized Health Care Education/Training Program
PROC: GZB4ZZZ Other Electroconvulsive Therapy (ICD-10-PCS; principal; 2024-02-05 08:18)
DX: F31.9 Bipolar disorder, unspecified (principal)
CPT/HCPCS: 36415; 80053; 85027; 90870; 94760

== ENCOUNTER 2024-02-06 08:15 | Day surgery (SDC) | payer OTHER ==
[2024-02-06 08:30] VITALS: RESP 18; BMI 27.8
[2024-02-06] MEDS ORDERED: KETAMINE HCL 100 MG/ML - 5ML VIAL ONE (10:28)
[2024-02-06] MEDS ORDERED: MIDAZOLAM HCL 2 MG/2 ML SINGLE DOSE VIAL ONE (10:41)
[2024-02-06 11:31] VITALS: TEMP 98
[2024-02-06 11:54] VITALS: BP 139/71; PULSE 84
== END 2024-02-06 12:12 | disposition home or self-care (01) ==
LOC: FECT 08:15
PROVIDERS: ATTEND Student in an Organized Health Care Education/Training Program
PROC: GZB4ZZZ Other Electroconvulsive Therapy (ICD-10-PCS; principal; 2024-02-06 10:41)
DX: F31.9 Bipolar disorder, unspecified (principal)
CPT/HCPCS: 90870; 94760

== ENCOUNTER 2024-02-13 08:38 | Day surgery (SDC) | payer OTHER ==
[2024-02-10 13:48] VITALS: BMI 27.8
[2024-02-13] MEDS ORDERED: KETAMINE HCL 100 MG/ML - 5ML VIAL ONE (09:56)
[2024-02-13] MEDS ORDERED: MIDAZOLAM HCL 2 MG/2 ML SINGLE DOSE VIAL ONE (09:56)
[2024-02-13] MEDS ORDERED: KETOROLAC TROMETHAMINE 30 MG/1 ML VIAL ONE (09:56)
[2024-02-13 11:11] VITALS: RESP 16; TEMP 98
[2024-02-13 11:40] VITALS: BP 121/64; PULSE 65
== END 2024-02-13 12:00 | disposition home or self-care (01) ==
LOC: FECT 08:38
PROVIDERS: ATTEND Student in an Organized Health Care Education/Training Program
PROC: GZB4ZZZ Other Electroconvulsive Therapy (ICD-10-PCS; principal; 2024-02-13 10:09)
DX: F31.9 Bipolar disorder, unspecified (principal)
CPT/HCPCS: 90870; 93005; 93010; 94760

== ENCOUNTER 2024-02-19 08:39 | Day surgery (SDC) | payer OTHER ==
[2024-02-13 17:36] VITALS: BMI 27.8
[2024-02-19] MEDS ORDERED: PROPOFOL 20 ML ONE (12:22)
[2024-02-19] MEDS ORDERED: KETAMINE HCL 100 MG/ML - 5ML VIAL ONE (12:41)
[2024-02-19] MEDS ORDERED: MIDAZOLAM HCL 2 MG/2 ML SINGLE DOSE VIAL ONE (12:49)
[2024-02-19 14:33] VITALS: RESP 18; TEMP 97.6
[2024-02-19 15:32] VITALS: BP 119/72; PULSE 72
== END 2024-02-19 15:15 | disposition home or self-care (01) ==
LOC: FECT 08:39
PROVIDERS: ATTEND Student in an Organized Health Care Education/Training Program
PROC: GZB4ZZZ Other Electroconvulsive Therapy (ICD-10-PCS; principal; 2024-02-19 12:55)
DX: F31.62 Bipolar disorder, current episode mixed, moderate (principal)
CPT/HCPCS: 90870; 94760

== ENCOUNTER 2024-02-20 09:39 | Day surgery (SDC) | payer OTHER ==
[2024-02-10 15:01] VITALS: BMI 27.8
[2024-02-20 12:10] VITALS: RESP 16; TEMP 97.9
[2024-02-20 12:24] VITALS: BP 120/71; PULSE 79
== END 2024-02-20 12:24 | disposition home or self-care (01) ==
LOC: FECT 09:39
PROVIDERS: ATTEND Psychiatry & Neurology Psychiatry
PROC: GZB4ZZZ Other Electroconvulsive Therapy (ICD-10-PCS; principal; 2024-02-20 11:16)
DX: F31.62 Bipolar disorder, current episode mixed, moderate (principal)
CPT/HCPCS: 90870; 94760

== ENCOUNTER 2024-02-26 10:05 | Day surgery (SDC) | payer OTHER ==
[2024-02-26 10:30] VITALS: BMI 27.8
[2024-02-26] MEDS ORDERED: KETAMINE HCL 100 MG/ML - 5ML VIAL ONE (12:18)
[2024-02-26] MEDS ORDERED: MIDAZOLAM HCL 2 MG/2 ML SINGLE DOSE VIAL ONE (12:23)
[2024-02-26 13:31] VITALS: RESP 18; TEMP 97.9
[2024-02-26 13:52] VITALS: BP 118/78; PULSE 64
== END 2024-02-26 14:00 | disposition home or self-care (01) ==
LOC: FECT 10:05
PROVIDERS: ATTEND Student in an Organized Health Care Education/Training Program
PROC: GZB4ZZZ Other Electroconvulsive Therapy (ICD-10-PCS; principal; 2024-02-26 12:34)
DX: F31.9 Bipolar disorder, unspecified (principal)
CPT/HCPCS: 90870; 94760

== ENCOUNTER 2024-02-27 07:18 | Day surgery (SDC) | payer OTHER ==
[2024-02-23 15:02] VITALS: BMI 27.8
[2024-02-27] MEDS ORDERED: PROPOFOL 20 ML ONE (09:13)
[2024-02-27] MEDS ORDERED: ONDANSETRON 4 MG/2 ML VIAL ONE (09:13)
[2024-02-27] MEDS ORDERED: KETOROLAC TROMETHAMINE 30 MG/1 ML VIAL ONE (09:13)
[2024-02-27] MEDS ORDERED: DEXAMETHASONE SOD PHOSPHATE 4 MG/1 ML VIAL ONE (09:13)
[2024-02-27] MEDS ORDERED: SUCCINYLCHOLINE CHLORIDE 200 MG/10 ML SYRINGE ONE (09:13)
[2024-02-27] MEDS ORDERED: LIDOCAINE HCL/PF 2% SDV 5ML VIAL ONE (09:13)
[2024-02-27 10:11] VITALS: PULSE 67; RESP 18; TEMP 97.8
[2024-02-27 11:14] VITALS: BP 120/78
== END 2024-02-27 11:14 | disposition home or self-care (01) ==
LOC: FECT 07:18
PROVIDERS: ATTEND Student in an Organized Health Care Education/Training Program
PROC: GZB4ZZZ Other Electroconvulsive Therapy (ICD-10-PCS; principal; 2024-02-27 09:18)
DX: F31.9 Bipolar disorder, unspecified (principal)
CPT/HCPCS: 90870; 94760

== ENCOUNTER 2024-03-03 08:03 | Day surgery (SDC) | payer OTHER ==
[2024-03-02 15:26] VITALS: BMI 27.8
[2024-03-03] MEDS ORDERED: KETOROLAC TROMETHAMINE 30 MG/1 ML VIAL ONE (09:49)
[2024-03-03] MEDS ORDERED: LIDOCAINE HCL 2% 100 MG/5 ML DISP.SYRIN ONE (09:49)
[2024-03-03] MEDS ORDERED: KETAMINE HCL 100 MG/ML - 5ML VIAL ONE (09:49)
[2024-03-03] MEDS ORDERED: PROPOFOL 20 ML ONE (09:49)
[2024-03-03] MEDS ORDERED: MIDAZOLAM HCL 2 MG/2 ML SINGLE DOSE VIAL ONE (10:00)
[2024-03-03 10:12] VITALS: TEMP 98.2
[2024-03-03 10:47] VITALS: RESP 18
[2024-03-03 11:29] VITALS: BP 121/71; PULSE 60
== END 2024-03-03 11:20 | disposition home or self-care (01) ==
LOC: FECT 08:03
PROVIDERS: ATTEND Student in an Organized Health Care Education/Training Program
PROC: GZB4ZZZ Other Electroconvulsive Therapy (ICD-10-PCS; principal; 2024-03-03 09:57)
DX: F31.9 Bipolar disorder, unspecified (principal)
CPT/HCPCS: 90870; 94760

== ENCOUNTER 2024-03-11 09:07 | Day surgery (SDC) | payer OTHER ==
[2024-03-03 14:25] VITALS: BMI 27.8
[2024-03-11 09:33] VITALS: RESP 17
[2024-03-11] MEDS ORDERED: KETAMINE HCL 100 MG/ML - 5ML VIAL ONE (11:11)
[2024-03-11] MEDS ORDERED: MIDAZOLAM HCL 2 MG/2 ML SINGLE DOSE VIAL ONE (11:36)
[2024-03-11 12:55] VITALS: TEMP 97.8
[2024-03-11 13:24] VITALS: BP 100/56; PULSE 67
== END 2024-03-11 13:10 | disposition home or self-care (01) ==
LOC: FECT 09:07
PROVIDERS: ATTEND Student in an Organized Health Care Education/Training Program
PROC: GZB4ZZZ Other Electroconvulsive Therapy (ICD-10-PCS; principal; 2024-03-11 11:33)
DX: F31.9 Bipolar disorder, unspecified (principal)
CPT/HCPCS: 90870; 94760

== ENCOUNTER 2024-03-18 09:45 | Day surgery (SDC) | payer OTHER ==
[2024-03-16 13:17] VITALS: BMI 27.8
[2024-03-18] MEDS ORDERED: MIDAZOLAM HCL 2 MG/2 ML SINGLE DOSE VIAL ONE (12:10)
[2024-03-18] MEDS ORDERED: KETAMINE HCL 100 MG/ML - 5ML VIAL ONE (12:11)
[2024-03-18 13:41] VITALS: RESP 18; TEMP 98
[2024-03-18 13:43] VITALS: BP 108/78; PULSE 64
== END 2024-03-18 13:45 | disposition home or self-care (01) ==
LOC: FECT 09:45
PROVIDERS: ATTEND Student in an Organized Health Care Education/Training Program
PROC: GZB4ZZZ Other Electroconvulsive Therapy (ICD-10-PCS; principal; 2024-03-18 12:25)
DX: F31.62 Bipolar disorder, current episode mixed, moderate (principal)
CPT/HCPCS: 90870; 94760

== ENCOUNTER 2024-03-25 09:58 | Day surgery (SDC) | payer OTHER ==
[2024-03-23 11:31] VITALS: BMI 27.8
[2024-03-25] MEDS ORDERED: KETAMINE HCL 100 MG/ML - 5ML VIAL ONE (11:15)
[2024-03-25] MEDS ORDERED: MIDAZOLAM HCL 2 MG/2 ML SINGLE DOSE VIAL ONE (11:20)
[2024-03-25 12:33] VITALS: RESP 16
[2024-03-25 12:53] VITALS: TEMP 97.9
[2024-03-25 13:14] VITALS: BP 107/64; PULSE 80
== END 2024-03-25 13:21 | disposition home or self-care (01) ==
LOC: FECT 09:58
PROVIDERS: ATTEND Psychiatry & Neurology Psychiatry
PROC: GZB4ZZZ Other Electroconvulsive Therapy (ICD-10-PCS; principal; 2024-03-25 11:32)
DX: F31.62 Bipolar disorder, current episode mixed, moderate (principal)
CPT/HCPCS: 90870; 94760

== ENCOUNTER 2024-03-26 11:30 | Day surgery (SDC) | payer OTHER ==
[2024-03-26 09:44] VITALS: BMI 27.8
[2024-03-26] MEDS ORDERED: MIDAZOLAM HCL 2 MG/2 ML SINGLE DOSE VIAL ONE (14:06)
[2024-03-26] MEDS ORDERED: KETAMINE HCL 100 MG/ML - 5ML VIAL ONE (14:06)
[2024-03-26 16:19] VITALS: RESP 18; TEMP 97.2
[2024-03-26 16:25] VITALS: BP 106/62; PULSE 83
== END 2024-03-26 16:25 | disposition home or self-care (01) ==
LOC: FECT 11:30
PROVIDERS: ATTEND Student in an Organized Health Care Education/Training Program
PROC: GZB4ZZZ Other Electroconvulsive Therapy (ICD-10-PCS; principal; 2024-03-26 14:25)
DX: F31.62 Bipolar disorder, current episode mixed, moderate (principal)
CPT/HCPCS: 90870; 94760

== ENCOUNTER 2024-03-30 07:21 | Day surgery (SDC) | payer OTHER ==
[2024-03-26 16:19] VITALS: BMI 27.8
[2024-03-30] MEDS ORDERED: MIDAZOLAM HCL 2 MG/2 ML SINGLE DOSE VIAL ONE (08:01)
[2024-03-30] MEDS ORDERED: KETAMINE HCL 100 MG/ML - 5ML VIAL ONE (08:01)
[2024-03-30 09:49] VITALS: RESP 16; TEMP 97.7
[2024-03-30 10:08] VITALS: BP 114/64; PULSE 67
== END 2024-03-30 10:29 | disposition home or self-care (01) ==
LOC: FECT 07:21
PROVIDERS: ATTEND Student in an Organized Health Care Education/Training Program
PROC: GZB4ZZZ Other Electroconvulsive Therapy (ICD-10-PCS; principal; 2024-03-30 08:44)
DX: F31.62 Bipolar disorder, current episode mixed, moderate (principal)
CPT/HCPCS: 90870; 94760

== ENCOUNTER 2024-04-15 07:53 | Day surgery (SDC) | payer OTHER ==
[2024-04-15 08:42] VITALS: BMI 27.8
[2024-04-15] MEDS ORDERED: KETAMINE HCL 100 MG/ML - 5ML VIAL ONE (10:17)
[2024-04-15 11:23] VITALS: RESP 16
[2024-04-15 11:26] VITALS: TEMP 97.7
[2024-04-15 11:53] VITALS: BP 106/67; PULSE 74
== END 2024-04-15 12:00 | disposition home or self-care (01) ==
LOC: FECT 07:53
PROVIDERS: ATTEND Psychiatry & Neurology Psychiatry
PROC: GZB4ZZZ Other Electroconvulsive Therapy (ICD-10-PCS; principal; 2024-04-15 10:34)
DX: F31.9 Bipolar disorder, unspecified (principal)
CPT/HCPCS: 90870; 94760

== ENCOUNTER 2024-04-16 12:22 | Day surgery (SDC) | payer OTHER ==
[2024-04-16 13:03] VITALS: BMI 27.8
[2024-04-16] MEDS ORDERED: MIDAZOLAM HCL 2 MG/2 ML SINGLE DOSE VIAL ONE (13:37)
[2024-04-16 13:55] VITALS: RESP 16
[2024-04-16 16:33] VITALS: PULSE 72; TEMP 98
[2024-04-16 16:35] VITALS: BP 104/72
== END 2024-04-16 15:35 | disposition home or self-care (01) ==
LOC: FECT 12:22
PROVIDERS: ATTEND Student in an Organized Health Care Education/Training Program
PROC: GZB4ZZZ Other Electroconvulsive Therapy (ICD-10-PCS; principal; 2024-04-16 13:41)
DX: F31.62 Bipolar disorder, current episode mixed, moderate (principal)
CPT/HCPCS: 90870; 94760

== ENCOUNTER 2024-04-22 10:18 | Day surgery (SDC) | payer OTHER ==
[2024-04-19 09:47] VITALS: BMI 27.8
[2024-04-22] MEDS ORDERED: KETAMINE HCL 100 MG/ML - 5ML VIAL ONE (11:15)
[2024-04-22] MEDS ORDERED: MIDAZOLAM HCL 2 MG/2 ML SINGLE DOSE VIAL ONE (11:28)
[2024-04-22 12:37] VITALS: RESP 16; TEMP 97.8
[2024-04-22 12:52] VITALS: BP 101/62; PULSE 62
== END 2024-04-22 13:50 | disposition home or self-care (01) ==
LOC: FECT 10:18
PROVIDERS: ATTEND Student in an Organized Health Care Education/Training Program
PROC: GZB4ZZZ Other Electroconvulsive Therapy (ICD-10-PCS; principal; 2024-04-22 11:26)
DX: F31.9 Bipolar disorder, unspecified (principal)
CPT/HCPCS: 90870; 94760

== ENCOUNTER 2024-04-23 07:40 | Day surgery (SDC) | payer OTHER ==
[2024-04-23 07:57] VITALS: BMI 27.8
[2024-04-23] MEDS ORDERED: KETAMINE HCL 100 MG/ML - 5ML VIAL ONE (09:02)
[2024-04-23] MEDS ORDERED: MIDAZOLAM HCL 2 MG/2 ML SINGLE DOSE VIAL ONE (09:02)
[2024-04-23] MEDS ORDERED: LIDOCAINE HCL/PF 2% SDV 5ML VIAL ONE (09:11)
[2024-04-23 10:36] VITALS: TEMP 98
[2024-04-23 10:50] VITALS: BP 100/54; PULSE 64; RESP 19
== END 2024-04-23 11:14 | disposition home or self-care (01) ==
LOC: FECT 07:40
PROVIDERS: ATTEND Student in an Organized Health Care Education/Training Program
PROC: GZB4ZZZ Other Electroconvulsive Therapy (ICD-10-PCS; principal; 2024-04-23 09:16)
DX: F31.62 Bipolar disorder, current episode mixed, moderate (principal)
CPT/HCPCS: 90870; 94760

== ENCOUNTER 2024-04-29 08:16 | Day surgery (SDC) | payer OTHER ==
[2024-04-23 17:32] VITALS: BMI 31.2
[2024-04-29] MEDS ORDERED: MIDAZOLAM HCL 2 MG/2 ML SINGLE DOSE VIAL ONE ×2 (09:01→09:55)
[2024-04-29] MEDS ORDERED: KETAMINE HCL 100 MG/ML - 5ML VIAL ONE (09:02)
[2024-04-29 10:58] VITALS: RESP 18; TEMP 98.1
[2024-04-29 11:01] VITALS: BP 102/69; PULSE 69
== END 2024-04-29 11:35 | disposition home or self-care (01) ==
LOC: FECT 08:16
PROVIDERS: ATTEND Student in an Organized Health Care Education/Training Program
PROC: GZB4ZZZ Other Electroconvulsive Therapy (ICD-10-PCS; principal; 2024-04-29 09:16)
DX: F31.9 Bipolar disorder, unspecified (principal)
CPT/HCPCS: 90870; 94760

== ENCOUNTER 2024-05-20 08:39 | Day surgery (SDC) | payer OTHER ==
[2024-05-10 07:35] VITALS: BMI 27.8
[2024-05-20] MEDS ORDERED: KETAMINE HCL 100 MG/ML - 5ML VIAL ONE (10:02)
[2024-05-20] MEDS ORDERED: MIDAZOLAM HCL 2 MG/2 ML SINGLE DOSE VIAL ONE (10:09)
[2024-05-20 11:13] VITALS: RESP 16; TEMP 98.6
[2024-05-20 11:33] VITALS: BP 98/53; PULSE 70
== END 2024-05-20 12:11 | disposition home or self-care (01) ==
LOC: FECT 08:39
PROVIDERS: ATTEND Student in an Organized Health Care Education/Training Program
PROC: GZB4ZZZ Other Electroconvulsive Therapy (ICD-10-PCS; principal; 2024-05-20 10:22)
DX: F31.9 Bipolar disorder, unspecified (principal)
CPT/HCPCS: 90870; 94760

== ENCOUNTER 2024-05-21 05:49 | Day surgery (SDC) | payer OTHER ==
[2024-05-21 06:33] VITALS: BMI 27.8
[2024-05-21] MEDS ORDERED: KETAMINE HCL 100 MG/ML - 5ML VIAL ONE (07:36)
[2024-05-21 09:42] VITALS: BP 110/56; PULSE 67; RESP 19; TEMP 97.2
== END 2024-05-21 09:32 | disposition home or self-care (01) ==
LOC: FECT 05:49
PROVIDERS: ATTEND Student in an Organized Health Care Education/Training Program
PROC: GZB4ZZZ Other Electroconvulsive Therapy (ICD-10-PCS; principal; 2024-05-21 08:04)
DX: F31.62 Bipolar disorder, current episode mixed, moderate (principal)
CPT/HCPCS: 90870; 94760

== ENCOUNTER 2024-05-27 08:09 | Day surgery (SDC) | payer OTHER ==
[2024-05-21 12:31] VITALS: BMI 27.8
[2024-05-27] MEDS ORDERED: SUCCINYLCHOLINE CHLORIDE 200 MG/10 ML SYRINGE ONE (09:29)
[2024-05-27] MEDS ORDERED: MIDAZOLAM HCL 2 MG/2 ML SINGLE DOSE VIAL ONE (09:46)
[2024-05-27 10:20] VITALS: RESP 16
[2024-05-27 10:30] VITALS: PULSE 84; TEMP 97.4
[2024-05-27 11:06] VITALS: BP 109/72
== END 2024-05-27 11:00 | disposition home or self-care (01) ==
LOC: FECT 08:09
PROVIDERS: ATTEND Student in an Organized Health Care Education/Training Program
PROC: GZB4ZZZ Other Electroconvulsive Therapy (ICD-10-PCS; principal; 2024-05-27 09:33)
DX: F31.62 Bipolar disorder, current episode mixed, moderate (principal)
CPT/HCPCS: 90870; 94760

== ENCOUNTER 2024-06-03 05:52 | Day surgery (SDC) | payer OTHER ==
[2024-06-03 06:50] VITALS: BMI 27.8
[2024-06-03] MEDS ORDERED: KETAMINE HCL 100 MG/ML - 5ML VIAL ONE (07:54)
[2024-06-03] MEDS ORDERED: MIDAZOLAM HCL 2 MG/2 ML SINGLE DOSE VIAL ONE (07:54)
[2024-06-03] MEDS ORDERED: SUCCINYLCHOLINE CHLORIDE 200 MG/10 ML SYRINGE ONE (08:27)
[2024-06-03 09:08] VITALS: PULSE 70; RESP 18; TEMP 97.5
[2024-06-03 09:51] VITALS: BP 106/54
== END 2024-06-03 09:51 | disposition home or self-care (01) ==
LOC: FECT 05:52
PROVIDERS: ATTEND Psychiatry & Neurology Psychiatry
PROC: GZB4ZZZ Other Electroconvulsive Therapy (ICD-10-PCS; principal; 2024-06-03 08:16)
DX: F31.9 Bipolar disorder, unspecified (principal)
CPT/HCPCS: 90870; 94760

== ENCOUNTER 2024-06-04 08:57 | Day surgery (SDC) | payer OTHER ==
[2024-05-28 14:54] VITALS: BMI 27.8
[2024-06-04] MEDS ORDERED: KETAMINE HCL 100 MG/ML - 5ML VIAL ONE (10:57)
[2024-06-04 12:18] VITALS: TEMP 97.4
[2024-06-04 12:54] VITALS: BP 114/62; PULSE 73; RESP 18
== END 2024-06-04 12:57 | disposition home or self-care (01) ==
LOC: FECT 08:57
PROVIDERS: ATTEND Psychiatry & Neurology Psychiatry
PROC: GZB4ZZZ Other Electroconvulsive Therapy (ICD-10-PCS; principal; 2024-06-04 11:12)
DX: F31.62 Bipolar disorder, current episode mixed, moderate (principal)
CPT/HCPCS: 90870; 94760

== ENCOUNTER 2024-06-10 06:25 | Day surgery (SDC) | payer OTHER ==
[2024-06-07 08:33] VITALS: BMI 27.8
[2024-06-10] MEDS ORDERED: KETAMINE HCL 100 MG/ML - 5ML VIAL ONE (08:45)
[2024-06-10] MEDS ORDERED: KETOROLAC TROMETHAMINE 30 MG/1 ML VIAL ONE (08:45)
[2024-06-10] MEDS ORDERED: PROPOFOL 20 ML ONE (08:45)
[2024-06-10] MEDS ORDERED: SUCCINYLCHOLINE CHLORIDE 200 MG/10 ML SYRINGE ONE (08:45)
[2024-06-10] MEDS ORDERED: LIDOCAINE HCL 2% 100 MG/5 ML DISP.SYRIN ONE (08:46)
[2024-06-10 09:41] VITALS: RESP 16; TEMP 98.9
[2024-06-10 10:07] VITALS: BP 110/65; PULSE 69
== END 2024-06-10 10:15 | disposition home or self-care (01) ==
LOC: FECT 06:25
PROVIDERS: ATTEND Student in an Organized Health Care Education/Training Program
PROC: GZB4ZZZ Other Electroconvulsive Therapy (ICD-10-PCS; principal; 2024-06-10 08:58)
DX: F31.62 Bipolar disorder, current episode mixed, moderate (principal)
CPT/HCPCS: 90870; 94760

== ENCOUNTER 2024-06-11 10:54 | Day surgery (SDC) | payer OTHER ==
[2024-06-07 08:39] VITALS: BMI 27.8
[2024-06-11] MEDS ORDERED: KETAMINE HCL 100 MG/ML - 5ML VIAL ONE (12:38)
[2024-06-11 13:27] VITALS: PULSE 70; RESP 18; TEMP 99.2
[2024-06-11 14:28] VITALS: BP 130/46
== END 2024-06-11 14:23 | disposition home or self-care (01) ==
LOC: FECT 10:54
PROVIDERS: ATTEND Student in an Organized Health Care Education/Training Program
PROC: GZB4ZZZ Other Electroconvulsive Therapy (ICD-10-PCS; principal; 2024-06-11 12:49)
DX: F31.62 Bipolar disorder, current episode mixed, moderate (principal)
CPT/HCPCS: 90870; 94760

== ENCOUNTER 2024-06-17 06:31 | Day surgery (SDC) | payer OTHER ==
[2024-06-14 13:55] VITALS: BMI 27.8
[2024-06-17] MEDS ORDERED: KETAMINE HCL 100 MG/ML - 5ML VIAL ONE (08:45)
[2024-06-17] MEDS ORDERED: ONDANSETRON 4 MG/2 ML VIAL IVPUSH PRN (09:20)
[2024-06-17 09:58] VITALS: TEMP 97.8
[2024-06-17 10:06] VITALS: BP 110/70; PULSE 69; RESP 19
== END 2024-06-17 10:20 | disposition home or self-care (01) ==
LOC: FECT 06:31
PROVIDERS: ATTEND Student in an Organized Health Care Education/Training Program
PROC: GZB4ZZZ Other Electroconvulsive Therapy (ICD-10-PCS; principal; 2024-06-17 09:08)
DX: F31.9 Bipolar disorder, unspecified (principal)
CPT/HCPCS: 90870; 94760

== ENCOUNTER 2024-06-18 06:25 | Day surgery (SDC) | payer OTHER ==
[2024-06-14 14:35] VITALS: BMI 27.5
[2024-06-18] MEDS ORDERED: KETAMINE HCL 100 MG/ML - 5ML VIAL ONE (08:50)
[2024-06-18 09:43] VITALS: RESP 18; TEMP 97.7
[2024-06-18 11:02] VITALS: BP 118/60; PULSE 64
== END 2024-06-18 10:55 | disposition home or self-care (01) ==
LOC: FECT 06:25
PROVIDERS: ATTEND Student in an Organized Health Care Education/Training Program
PROC: GZB4ZZZ Other Electroconvulsive Therapy (ICD-10-PCS; principal; 2024-06-18 09:00)
DX: F31.9 Bipolar disorder, unspecified (principal)
CPT/HCPCS: 90870; 94760